=== PATIENT | female | born 1955 | race Caucasian/White ===

== ENCOUNTER 2020-08-24 13:22 | Inpatient (IN) | payer MEDICAID, SELFPAY ==
--- NOTE | ~2020-08-24 | CT_ITS ---
EXAMINATION: CT CHEST, ABDOMEN AND PELVIS WITHOUT CONTRAST. CLINICAL INFORMATION: hypercalcemia/AMS, r/o malignancy . COMPARISON: 02/05/2018. TECHNIQUE: Multidetector volumetric imaging was performed from the thoracic inlet through the pubic symphysis without intravenous contrast. Sagittal and coronal reformatted images were obtained on the technologist workstation. This CT examination was performed using dose optimization techniques as appropriate, variously including the following: *Automated exposure control *Adjustment of mA and/or kV according to patient size (this includes techniques or standardized protocols for targeted exams where dose is matched to indication/reason for exam; i.e. extremities or head) *Use of iterative reconstruction technique DLP: 454 mGy-cm FINDINGS: CHEST: Lungs: Mild centrilobular emphysematous changes are seen within the upper lobes. Mucus or debris impacted bronchi seen more so in the right lower lobe with some patchy distal regions of bronchial opacification as well. There is focal volume loss with collapse of the right middle lobe. I do not appreciate any obstructing lesion in the right middle lobe. Mediastinum: Vascular calculation in the aorta and great vessels no bulky hilar or mediastinal adenopathy. Pericardium/Pleura: No significant effusion. No pleural mass or thickening. Chest Wall/Axilla: Unremarkable. ABDOMEN/PELVIS: Peritoneal Space:No significant free air or free fluid identified. Liver, Gallbladder, Biliary Tree: The non contrast liver is normal in size, shape, and attenuation. No focal hepatic lesion or biliary ductal dilatation is present. The gallbladder is unremarkable with no evidence of radiopaque gallstones, gallbladder wall thickening, or obvious pericholecystic inflammatory changes. Pancreas: Unremarkable. Spleen: Unremarkable. Adrenal Glands: Unremarkable. Kidneys and Ureters: The kidneys are normal in size, shape, and attenuation. No hydronephrosis, hydroureter, or calculi seen. No perinephric stranding. Bladder: Unremarkable. Gastrointestinal Tract: Scattered colonic diverticulosis no colonic wall thickening or pericolonic inflammatory changes. No obstructive changes to the bowel Abdominal Wall: Right inguinal hernia mesh anchors seen Lymphovascular Structures: Vascular calcification within the aorta iliac system. Pelvic Viscera: Unremarkable. Osseus Structures: Multilevel degenerative changes in the spine more so at L5/S1. CT/CT abdomen pelvis wo con IMPRESSION: Mucus or debris impacted bronchi right more so than left with complete collapse of the right middle lobe. Etiology of this is uncertain and difficult to define further on this noncontrast study. Contrast enhanced study or even bronchoscopy may be needed to assess the etiology further. I do not appreciate any bulky adenopathy at this time. Chronic appearing changes in the abdomen but no definitive acute intra-abdominal process.
--- NOTE | ~2020-08-24 | CT_ITS ---
EXAMINATION: CT BRAIN AND CT CERVICAL SPINE WITHOUT CONTRAST CLINICAL INFORMATION: AMS. COMPARISON: None TECHNIQUE: 5 mm thin axial and reformatted 2 mm thin sagittal and coronal images of brain were obtained without contrast. Subsequently axial 3 mm thin and reformatted 2 mm thin sagittal and coronal images of cervical spine were obtained. DLP 1169 FINDINGS: Brain: There is no acute intra-axial, extra-axial bleed, masses or midline shift. There is no acute infarct in evolution. The lateral ventricles are symmetrical in size and configuration without enlargement. The negro to white matter differentiation is maintained normal. Bone windows reveal no calvarial abnormality. There is no scalp soft tissue abnormality. Bilateral paranasal sinuses and mastoid air cells are well aerated. Cervical spine: There is mild straightening of cervical lordosis. The vertebral heights, alignment and disc heights are normal. The craniovertebral junction and the C1-C2 alignment is normal. There is mild superior endplate spurring at the C1-C2 disc level. There is mild ventral spondylosis C3-C4, C4-C5, C5-C6 and C6-C7 disc levels. Moderate left C2-C3, C4-C5 and C5-C6 facet joint arthropathy is noted. No visible acute fracture, dislocation or subluxation seen. Incidental note is made of a right hemimandibulectomy and postsurgical changes. The prevertebral soft tissues are normal. CT/CT cervical spine wo con IMPRESSION: No acute intracranial process seen. Ventral spondylosis C3-C4 through C6-C7 disc levels. No acute fracture or dislocation seen in the cervical spine.
--- NOTE | ~2020-08-24 | CT_ITS ---
EXAMINATION: CT BRAIN AND CT CERVICAL SPINE WITHOUT CONTRAST CLINICAL INFORMATION: AMS. COMPARISON: None TECHNIQUE: 5 mm thin axial and reformatted 2 mm thin sagittal and coronal images of brain were obtained without contrast. Subsequently axial 3 mm thin and reformatted 2 mm thin sagittal and coronal images of cervical spine were obtained. DLP 1169 FINDINGS: Brain: There is no acute intra-axial, extra-axial bleed, masses or midline shift. There is no acute infarct in evolution. The lateral ventricles are symmetrical in size and configuration without enlargement. The negro to white matter differentiation is maintained normal. Bone windows reveal no calvarial abnormality. There is no scalp soft tissue abnormality. Bilateral paranasal sinuses and mastoid air cells are well aerated. Cervical spine: There is mild straightening of cervical lordosis. The vertebral heights, alignment and disc heights are normal. The craniovertebral junction and the C1-C2 alignment is normal. There is mild superior endplate spurring at the C1-C2 disc level. There is mild ventral spondylosis C3-C4, C4-C5, C5-C6 and C6-C7 disc levels. Moderate left C2-C3, C4-C5 and C5-C6 facet joint arthropathy is noted. No visible acute fracture, dislocation or subluxation seen. Incidental note is made of a right hemimandibulectomy and postsurgical changes. The prevertebral soft tissues are normal. CT/CT head/brain wo con IMPRESSION: No acute intracranial process seen. Ventral spondylosis C3-C4 through C6-C7 disc levels. No acute fracture or dislocation seen in the cervical spine.
--- NOTE | ~2020-08-24 | FL_ITS ---
EXAMINATION: XR BARIUM SWALLOW CLINICAL INFORMATION: Dysphagia COMPARISON: None TECHNIQUE: Fluoroscopic guidance was provided for modified barium swallow performed by the speech and hearing department. FINDINGS: There is retention of contrast seen in the vallecula with multiple media. There is penetration with contrast seen in the larynx with multiple media. There was ivette aspiration when the patient drank liquid barium out of a cup. FLUOROSCOPY TIME: 1.8 minutes DOSE AREA PRODUCT: 1.4 negro per centimeter squared. Total dose 4.5 mgy. FL/FL barium swallow modified IMPRESSION: Retention, penetration and aspiration seen.
[2020-08-24 13:36] VITALS: BP 165/50; BP 170/80; PULSE 68; PULSE 84; RESP 18; TEMP 36.6; O2SAT 98; O2SAT 99; BMI 23.6
--- NOTE | 2020-08-24 13:46 | ECG_ITS ---
Test Reason : AMS Blood Pressure : / mmHG Vent. Rate : 066 BPM Atrial Rate : 066 BPM P-R Int : 162 ms QRS Dur : 092 ms QT Int : 430 ms P-R-T Axes : 081 082 048 degrees QTc Int : 450 ms Normal sinus rhythm Normal ECG No previous ECGs available Referred By: Jo-Ann Degroot Electronically Signed By:JOSE ALVARENGA MD
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
[2020-08-24 14:17] LABS: MANUAL DIFF FLAG NO
[2020-08-24 14:19] LABS: Basophils Percent Auto 0.2 % (0-2); Hematocrit 25.5 % (37-47); Hemoglobin 8.6 g/dl (12.0-16.0); Imm Gran Abs Auto 0.04 X10*3/uL (0.00-0.03); Imm Gran Pct Auto 0.5 % (0.0-0.4); Lymphocytes Absolute Auto 0.8 X10*3/uL (1.2-4.9); Lymphocytes Percent Auto 9.1 % (20-40); Mean Corpuscular HGB Conc 33.7 g/dl (31.0-35.0); Mean Corpuscular Hemoglobin 33.9 pg (27.0-33.0); Mean Corpuscular Volume 100.4 fL (80-98); Mean Platelet Volume 9.2 fL (9.4-12.3); Monocytes Absolute Auto 0.6 X10*3/uL (0.1-1.2); Monocytes Percent Auto 6.4 % (2-11); Neutrophils Absolute Auto 7.3 X10*3/uL (2.0-8.3); Neutrophils Percent Auto 83.8 % (45-73); Platelet Count 258 X10*3/uL (160-400); Red Blood Count 2.54 X10*6/uL (4.20-5.50); Red Cell Distribution Width 12.5 % (11.0-16.0); White Blood Count 8.7 X10*3/uL (4.8-10.8)
[2020-08-24 14:26] LABS: INTERNATIONAL NORM RATIO 1.1 (0.9-1.1)
[2020-08-24 14:42] LABS: Lactic Acid 1.3 mmol/L (0.5-2.0)
[2020-08-24 14:43] LABS: Ethanol < 10 mg/dL
[2020-08-24 15:06] LABS: Alanine Aminotransferase 42 U/L (0-31); Albumin Level 4.2 g/dL (3.5-5.0); Alkaline Phosphatase 69 U/L (39-117); Anion Gap 14 (12-20); Aspartate Amino Transferase 171 U/L (5-31); Bilirubin Direct 0.2 mg/dL (0.0-0.5); Bilirubin Total 0.6 mg/dL (0.0-1.0); Blood Urea Nitrogen 47 mg/dL (9-16); Calcium 13.3 mg/dL (8.4-10.2); Carbon Dioxide 33 mmol/L (22-29); Chloride 95 mmol/L (96-108); Creatinine Clr Calc Pharmacy 25.4; Estimated Glomerular Filt Rate 31; Glucose Random 109 mg/dL (60-115); Magnesium 1.3 mg/dL (1.6-2.6); Potassium 2.8 mmol/L (3.3-5.1); Salicylate < 5.0 mg/dL (15-30); Sodium 139 mmol/L (135-145); Total Protein 7.1 g/dL (6.5-8.0)
[2020-08-24 15:07] LABS: Troponin-I High Sensitivity 74.2 ng/L (<3.5-17.0)
[2020-08-24] MEDS: Magnesium Sulfate/H2O 2 GM/50 ML PIGGYBACK IV (15:52)
[2020-08-24] MEDS: 0.9 % Sodium Chloride 1,000 ML 999 ML IV (15:53)
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
--- NOTE | 2020-08-24 16:33 | HE.PHANOTE ---
Pharmacy has completed the medication reconciliation and there were no significant medication issues requiring provider attention.
[2020-08-24 16:50] VITALS: BP 137/51; PULSE 65; RESP 16; O2SAT 100
[2020-08-24] MEDS: Potassium Chloride/H20 10 MEQ/100 ML PIGGYBACK 100 MEQ IV ×4 (17:07→22:59)
[2020-08-24 17:29] LABS: COVID-19 Test Negative (Negative)
--- NOTE | 2020-08-24 18:04 | PC.NURSE ---
daughter lindsay [phone]
--- NOTE | 2020-08-24 18:05 | PC.NURSE ---
PT AMBULATED STEADILY TO BATHROOM WITH WALKER. URINE SPECIMEN OBTAINED.
[2020-08-24 18:17] LABS: Glucose Urine UA NEG (NEG); Leukocyte Esterase Urine NEG (NEG); Nitrite Urine NEG (NEG); Specific Gravity - Urine 1.015 (1.005-1.025); Urine Blood 1+ (NEG); Urine Ketones NEG (NEG); Urine Protein TRACE MG/DL (NEG-TRACE)
[2020-08-24 18:24] LABS: Appearance Urine CLEAR; Color Urine YELLOW
[2020-08-24 18:31] LABS: Amphetamine Screen Urine Not Detected (Not Detect); Barbiturates, Urine Not Detected (Not Detect); Benzodiazepines Screen Urine Not Detected (Not Detect); Cannabinoid Screen Urine Not Detected (Not Detect); Cocaine Screen Urine Not Detected (Not Detect); Opiate Screen Urine Not Detected (Not Detect); Phencyclidine Screen Urine Not Detected (Not Detect)
[2020-08-24 18:39] LABS: WBC Urine 0-2 /HPF (0-4)
[2020-08-24 18:40] LABS: Bacteria Urine TRACE /LPF; Hyaline Casts Urine 0-2 /LPF; RBC Urine 0-2 /HPF (0); Squamous Epithelial Cell Urine 1+ /LPF
[2020-08-24 18:59] LABS: OBS Int Ctl Valid YES; OBS1 POSITIVE (NEGATIVE)
[2020-08-24] MEDS: Piperacillin Sodium/Tazobactam 3.375 GM in 0.9 % Sodium Chloride 50 ML IV (19:05)
[2020-08-24 19:13] VITALS: BP 141/57; PULSE 64; RESP 16; O2SAT 96
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
--- NOTE | 2020-08-24 20:04 | PC.NURSE ---
report given to RN on IMC
[2020-08-24] MEDS: vancomycin HCL 750 MG in 0.9 % Sodium Chloride 250 ML 265 MG IV (20:15)
[2020-08-24 20:33] LABS: B Type Natriuretic Peptide 692 pg/mL (<100)
[2020-08-24 20:48] LABS: Anion Gap 16 (12-20); Blood Urea Nitrogen 41 mg/dL (9-16); Carbon Dioxide 27 mmol/L (22-29); Chloride 101 mmol/L (96-108); Creatinine Clr Calc Pharmacy 32.8; Estimated Glomerular Filt Rate 42; Glucose Random 83 mg/dL (60-115); Potassium 3.5 mmol/L (3.3-5.1); Sodium 140 mmol/L (135-145)
[2020-08-24 20:51] LABS: Vitamin D 25-OH Total 27.9 ng/mL (>30)
[2020-08-24 21:05] LABS: Troponin-I High Sensitivity 66.9 ng/L (<3.5-17.0)
[2020-08-24 21:14] VITALS: BP 181/75; PULSE 62; RESP 20; TEMP 36.8; O2SAT 96
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
[2020-08-24] MEDS: Dextrose 5 % and 0.9 % NaCl 1,000 ML 100 ML IVCONT (22:48)
[2020-08-24 23:37] VITALS: BP 150/61; PULSE 60; RESP 18; TEMP 36.7; O2SAT 99
[2020-08-25] VITALS (9 sets, daily range): BP systolic 117–160; BP diastolic 51–79; PULSE 55–82; RESP 18–20; TEMP 36.3–37; O2SAT 88–100; BMI 23.6
[2020-08-25] MEDS: Piperacillin Sodium/Tazobactam 2.25 GM in 0.9 % Sodium Chloride 50 ML IV ×2 (02:00→07:46)
[2020-08-25] MEDS: Levothyroxine Sodium 100 MCG/5 ML VIAL 37.5 MCG IVPUSH (06:09)
[2020-08-25] MEDS: Pantoprazole Sodium 40 MG/10 ML VIAL IVPUSH ×2 (06:09→16:32)
[2020-08-25 06:21] LABS: MANUAL DIFF FLAG NO
[2020-08-25 06:45] LABS: Basophils Percent Auto 0.3 % (0-2); Eosinophils Absolute Auto 0.1 X10*3/uL (0.0-0.4); Eosinophils Percent Auto 1.1 % (0-4); Hematocrit 23.5 % (37-47); Hemoglobin 7.9 g/dl (12.0-16.0); INTERNATIONAL NORM RATIO 1.1 (0.9-1.1); Imm Gran Abs Auto 0.02 X10*3/uL (0.00-0.03); Imm Gran Pct Auto 0.3 % (0.0-0.4); Lymphocytes Absolute Auto 0.9 X10*3/uL (1.2-4.9); Lymphocytes Percent Auto 14.9 % (20-40); Mean Corpuscular HGB Conc 33.6 g/dl (31.0-35.0); Mean Corpuscular Hemoglobin 33.8 pg (27.0-33.0); Mean Corpuscular Volume 100.4 fL (80-98); Mean Platelet Volume 9.7 fL (9.4-12.3); Monocytes Absolute Auto 0.7 X10*3/uL (0.1-1.2); Monocytes Percent Auto 10.4 % (2-11); Neutrophils Absolute Auto 4.6 X10*3/uL (2.0-8.3); Platelet Count 226 X10*3/uL (160-400); Prothrombin Time 13.4 SEC (10.8-13.0); Red Blood Count 2.34 X10*6/uL (4.20-5.50); Red Cell Distribution Width 12.7 % (11.0-16.0); White Blood Count 6.3 X10*3/uL (4.8-10.8)
[2020-08-25 06:55] LABS: Magnesium 1.8 mg/dL (1.6-2.6)
[2020-08-25 07:08] LABS: Anion Gap 10 (12-20); Blood Urea Nitrogen 33 mg/dL (9-16); Carbon Dioxide 27 mmol/L (22-29); Chloride 107 mmol/L (96-108); Creatinine Clr Calc Pharmacy 33.4; Estimated Glomerular Filt Rate 43; Glucose Random 103 mg/dL (60-115); Potassium 3.1 mmol/L (3.3-5.1); Sodium 141 mmol/L (135-145)
[2020-08-25 07:23] LABS: Calcium 10.4 mg/dL (8.4-10.2)
--- NOTE | 2020-08-25 07:30 | CA_ITS ---
Transthoracic Echocardiogram Patient (Last, First, Middle): Beckie Santiago, Gender: Female Date of : 1955 Age: 65 Procedure Date: 08/25/2020 Procedure Type: Transthoracic Echocardiogram Location: [facility] [place] Height: 154.94 cm Weight: 56.7 kg BSA: 1.55 m2 Heart Rate: bpm BP: 117 / 51 mmHg Agricultural Inspector: Referring MD: Yasir Last MD Symptoms: high troponin Conclusions: - 1. Normal LV systolic and diastolic function 2. Normal cardiac valvular Doppler 3. Mildly elevated right ventricular systolic pressure 4. No pericardial effusion Findings Left Ventricle Normal left ventricular size, thickness, and systolic function. Spectral Doppler is indicative of a normal filling pattern. Right Ventricle Normal right ventricular cavity size. There is borderline right ventricular systolic function. Atria Both atria are normal in size. There is no evidence of interatrial shunt. Aortic Valve Normal aortic valve structure and function. There is no aortic valve stenosis. There is no aortic valve regurgitation. Mitral Valve Normal mitral valve structure and function. There is trace mitral valve regurgitation. There is no mitral valve stenosis. Pulmonic Valve The pulmonic valve is likely normal. Tricuspid Valve Normal tricuspid valve structure. There is mild tricuspid valve regurgitation. Mild pulmonary hypertension is present. Great Vessels All visible segments of the aorta are normal in size. The pulmonary artery was not well visualized. Venous The inferior vena cava is normal in size and collapses greater than 50% with inspiration. Pericardium/Pleural There is no evidence of pericardial effusion. Prior Study Comparison No prior study available for comparison. Measurements 2D Linear Measurements RVIDd: 2.67 RVIDd Index: 1.72 IVSd: 0.65 0.6-0.9/0.6-1.0 cm LVIDd: 4.08 3.9-5.3/4.2-5.9 cm LVIDd Index: 2.63 2.4-3.2/2.2-3.1 cm/m2 LVIDs: 2.88 2.0-3.6 cm LVPWd: 1.19 0.7-1.1 cm Ao Root: 2.70 2.1-3.5 cm LA Diam: 3.10 2.7-3.8/3.0-4.0 cm LAIDs Index: 2.00 1.5-2.3 cm/m2 LV Mass: 145.36 67-162/88-224 g LV Mass Index: 93.78 43-95/49-115 g/m2 LVOT Diam: 2.20 3.0+(-)1.3 cm 2D Systolic Function EF 4C: 64.30 >55% EF 2C: 67.80 >55% EF BiP: 65.00 >55% Mitral Valve MV Pk E: 1.04 MV PK A: 0.74 MV Decel Time: 159.00 E/A: 1.40 E'Lateral: 7.18 E'Medial: 8.38 E/E' Med: 12.40 E/E' Lat: 14.50 Aortic Valve AoV Pk Darion: 1.38 AoV Mn Darion: 1.12 AoV VTI: 0.38 AoV Pk Grad: 8.00 Aov Mn Grad: 5.00 BERNADINE Cont.VTI: 2.65 LVOT LVOT Pk Darion: 1.01 LVOT Mn Darion: 0.74 LVOT VTI: 0.27 LVOT Pk Grad: 4.00 LVOT Mn Grad: 2.00 LVOT Diam: 2.20 LVOT Area: 3.80 Diastolic Function MV Pk E: 1.04 MV Pk A: 0.74 E/A: 1.40 E'Medial: 8.38 E/E' Med: 12.40 E' Laterial: 7.18 E/E' Lat: 14.50 Tricuspid Valve TR Pk Darion: 3.11 TR Pk Grad: 32.00 RA Press: 8.00 RVSP: 40.00 Great Vessels Aorta Ao Root-2D: 2.70 2.0-3.7 cm Updated in Other Vendor System with Status of Final Tho Monteiro MD electronically signed on 08/25/2020 9:15:13 AM with status of Final
[2020-08-25] MEDS: 0.9 % Sodium Chloride Flush 3 ML SYRINGE IVFLUSH ×2 (07:46→15:26)
[2020-08-25] MEDS: Dextrose 5 % and 0.9 % NaCl 1,000 ML 100 ML IVCONT ×3 (07:46→23:30)
[2020-08-25] MEDS: Magnesium Sulfate/H2O 2 GM/50 ML PIGGYBACK IV (08:57)
[2020-08-25] MEDS: Potassium Chloride/H20 10 MEQ/100 ML PIGGYBACK 100 MEQ IV ×4 (08:58→12:41)
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
[2020-08-25] MEDS: Acetylcysteine 10 % 400 MG/4 ML VIAL INHALE ×3 (11:08→20:45)
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
--- NOTE | 2020-08-25 11:29 | P.CONCA_ITS ---
History of Present Illness History of Present Illness Date of Service: 08/25/20 Requesting physician: Yasir Last Consult reason: troponin elevation Chief complaint: Confusion Narrative: I was asked to see tear is sign cardiology consultation today for elevated troponin. Also noted incidentally to have elevated BNP. Patient came into the hospital with confusion. However currently she says she is fully oriented. Her main complain is currently lower back discomfort. On admission she was noted to have minimally elevated troponin which and subsequently workup showed down trending troponin. This is more stable and there is no suggestion of any cardiac symptoms of ischemia including no chest pain or shortness of breath. There were no EKG changes suggestive ischemia. This troponin elevation is not related to acute coronary syndrome. Patient also noted to have elevated BNP. She has had no recent heart failure symptoms. No other clinical signs of heart failure. Patient noted to have right middle lobe infiltrate question atelectasis related to mucus plugging. However blood cultures are positive for bacteremia suggestive of possible pneumonia with sepsis. She has no prior cardiac history. She has prior history of malignancy of the jaw. Review of Systems Constitutional: Constitutional: Denies chills, Reports fatigue, Denies fever(s) and Reports lethargy Cardiovascular: Cardiovascular: Reports no additional cardiovascular complaints Respiratory: Respiratory: Reports no additional respiratory complaints Gastrointestinal: Gastrointestinal: Reports no additional gastrointestinal complaints Genitourinary: Genitourinary: Reports no additional female genitourinary complaints Musculoskeletal: Musculoskeletal: Reports no additional musculoskeletal complaints Neurologic: Reports system reviewed and no additional complaints, except as documented Psychiatric: Psychiatric: Reports no additional psychiatric complaints Endocrine: Endocrine: Reports no additional endocrine complaints and Reports fatigue PMFSH Past Medical History Medical History Cancer of jaw Hypothyroidism Social History Social History Household Members: Children and Other Household Members Other:: states she lives with her mother, but ed reporting states living with daugh Housing: House Do you presently have visiting nurse or other home services: No (used to have services but states they stopped 3 years ago) Alcohol intake: current Alcohol intake frequency: 3 or more drinks per day Alcohol type: beer Patient Tobacco Use Status: Current someday Tobacco user Tobacco use type: Cigarette Cigarette Packs Per Day: 1 Cigarettes Per Day: 20.0 Years Smoked: 35 service: No Current occupational status: disabled Meds Allergies Allergy/AdvReac Type Severity Reaction Status Date / Time No Known Allergies Allergy Verified 08/24/20 13:45 Active Medications: Current Medications Generic Name Dose Route Start Last Admin Trade Name Freq PRN Reason Stop Dose Admin Acetaminophen 650 mg 08/24/20 19:17 Acetaminophen 325 Mg Tablet PO Q6H PRN Pain, Mild (Pain Scale 1-3) Acetylcysteine 400 mg 08/25/20 12:00 08/25/20 11:08 Acetylcysteine 10 % 400 Mg/4 Ml Vial INHALE 400 mg RQ4H WHILE AWAKE ARIAN Administration Enoxaparin Sodium 40 mg 08/24/20 20:00 08/24/20 22:10 Enoxaparin Sodium 40 Mg/0.4 Ml Syringe SUBCUT Not Given Q24H ARIAN Dextrose/Sodium Chloride 1,000 mls @ 100 mls/hr 08/24/20 19:30 08/25/20 07:46 D5ns IVCONT 100 mls/hr .Q10H ARIAN Administration Piperacillin Sod/Tazobactam 50 mls @ 100 mls/hr 08/25/20 02:00 08/25/20 08:18 Sod 2.25 gm/ Sodium Chloride IV Infused Q6H ARIAN Infusion Vancomycin HCl 750 mg/ Sodium 265 mls @ 265 mls/hr 08/25/20 20:00 08/24/20 21:59 Chloride IV Infused Q24H ARIAN Infusion Potassium Chloride 10 meq in 100 mls @ 100 mls/hr 08/25/20 08:45 08/25/20 09:58 IV 08/25/20 12:44 100 mls/hr Q1H ARIAN Administration Levothyroxine Sodium 37.5 mcg 08/25/20 06:00 08/25/20 06:10 Levothyroxine Sodium 100 Mcg Vial IVPUSH Not Given DAILY@0600 ARIAN Levothyroxine Sodium 37.5 mcg 08/25/20 06:00 08/25/20 06:09 Levothyroxine Sodium 100 Mcg/5 Ml Vial IVPUSH 37.5 mcg DAILY@0600 ARIAN Administration Magnesium Hydroxide 30 ml 08/24/20 19:17 Milk Of Magnesia 30 Ml Oral.Susp PO DAILY PRN Constipation Pantoprazole Sodium 40 mg 08/25/20 06:30 06/09/21 06:09 Pantoprazole Sodium 40 Mg/10 Ml Vial IVPUSH 40 mg BID@[id number] [facility] Administration Pharmacy Consult 1 each 08/24/20 16:16 Consult Rx Perform Med Rec MISCELLANE ONCE PRN Consult order Pharmacy Consult 1 each 08/24/20 19:34 Consult Rx Vancomycin Dosing MISCELLANE DAILY PRN Consult order Sodium Chloride 3 ml 08/25/20 00:00 08/25/20 07:46 0.9 % Sodium Chloride Flush 3 Ml Syringe IVFLUSH 3 ml QSHIFT [facility] Administration Home Medications Medication Instructions Recorded Confirmed Last Taken Type levothyroxine 1 tab PO DAILY 08/24/20 08/24/20 08/24/20 History Physical Exam Vital Signs: Vital Signs: Last Vital Signs Temp 98.5 F 08/25/20 11:24 Pulse 65 08/25/20 11:24 Resp 18 08/25/20 11:24 BP 142/65 H 08/25/20 11:24 Pulse Ox 99 08/25/20 11:24 Body Mass Index 23.6 Const: General: cooperative, comfortable, no acute distress, alert and awake Nutritional Appearance: average body habitus Orientation/consciousness: patient oriented x3 Limitations: no limitations HENMT: Head: Yes normocephalic and Yes atraumatic Neck: Neck: Yes trachea midline, Yes supple and Yes no JVD Resp: Effort & Inspection: normal respiratory effort Auscultation: breath sounds absent on the right (Mid posterior) and diminished lung sounds Cardio: Jugular venous distension: no JVD Palpation: normal PMI Rate: regular rate Rhythm: regular rhythm Heart sounds: S1 normal heart sound present and S2 normal heart sound present GI: Auscultation: normal bowel sounds Skin: General skin exam: no rashes or lesions noted Neuro: General: patient oriented x3 Extrem: General: Yes no clubbing, cyanosis or edema Psych: Appearance: grossly normal Results Labs and Meds Result diagrams: 08/25/20 05:36 08/25/20 05:36 Lab results: Laboratory Results - last 24 hr 08/24/20 08/24/20 08/24/20 14:09 14:09 14:09 WBC 8.7 RBC 2.54 L Hgb 8.6 L Hct 25.5 L MCV 100.4 H MCH 33.9 H MCHC 33.7 RDW 12.5 Plt Count 258 MPV 9.2 L Immature Gran % (Auto) 0.5 H Neut % (Auto) 83.8 H Lymph % (Auto) 9.1 L Perkins % (Auto) 6.4 Eos % (Auto) 0.0 Baso % (Auto) 0.2 Lymph # (Auto) 0.8 L Perkins # (Auto) 0.6 Eos # (Auto) 0.0 Baso # (Auto) 0.0 Abs Immat Gran (auto) 0.04 H Absolute Neuts (auto) 7.3 Absolute Nucleated RBC 0.000 Nucleated RBC % (auto) 0.0 PT 13.0 INR 1.1 Sodium 139 Potassium 2.8 L Chloride 95 L Carbon Dioxide 33 H Anion Gap 14 BUN 47 H Creatinine 1.64 H Estim Creat Clear Calc 25.4 Estimated GFR 31 Random Glucose 109 Lactic Acid Calcium 13.3 H* Magnesium Total Bilirubin 0.6 Direct Bilirubin 0.2 AST 171 H ALT 42 H Alkaline Phosphatase 69 Troponin I High Sens B-Natriuretic Peptide Total Protein 7.1 Albumin 4.2 25-OH Vitamin D Total Urine Color Urine Appearance Urine pH Ur Specific [place] Urine Protein Urine Glucose (UA) Urine Ketones Urine Blood Urine Nitrite Ur Leukocyte Esterase Urine RBC Urine WBC Ur Squamous Epith Cells Urine Bacteria Hyaline Casts Stool Occult Blood Salicylates Urine Opiates Screen Ur Barbiturates Screen Ur Phencyclidine Scrn Ur Amphetamines Screen U Benzodiazepines Scrn Urine Cocaine Screen U Marijuana (THC) Screen Ethyl Alcohol COVID-19 ([facility]) COVID-19 Clin Com 08/24/20 08/24/20 08/24/20 14:09 14:09 14:09 WBC RBC Hgb Hct MCV MCH MCHC RDW Plt Count MPV Immature Gran % (Auto) Neut % (Auto) Lymph % (Auto) Perkins % (Auto) Eos % (Auto) Baso % (Auto) Lymph # (Auto) Perkins # (Auto) Eos # (Auto) Baso # (Auto) Abs Immat Gran (auto) Absolute Neuts (auto) Absolute Nucleated RBC Nucleated RBC % (auto) PT INR Sodium Potassium Chloride Carbon Dioxide Anion Gap BUN Creatinine Estim Creat Clear Calc Estimated GFR Random Glucose Lactic Acid 1.3 Calcium Magnesium Total Bilirubin Direct Bilirubin AST ALT Alkaline Phosphatase Troponin I High Sens 74.2 H* B-Natriuretic Peptide Total Protein Albumin 25-OH Vitamin D Total Urine Color Urine Appearance Urine pH Ur Specific [place] Urine Protein Urine Glucose (UA) Urine Ketones Urine Blood Urine Nitrite Ur Leukocyte Esterase Urine RBC Urine WBC Ur Squamous Epith Cells Urine Bacteria Hyaline Casts Stool Occult Blood Salicylates Urine Opiates Screen Ur Barbiturates Screen Ur Phencyclidine Scrn Ur Amphetamines Screen U Benzodiazepines Scrn Urine Cocaine Screen U Marijuana (THC) Screen Ethyl Alcohol < 10 COVID-19 ([facility]) COVID-19 Clin [email or web address] 08/24/20 08/24/20 08/24/20 14:09 16:49 17:52 WBC RBC Hgb Hct MCV MCH MCHC RDW Plt Count MPV Immature Gran % (Auto) Neut % (Auto) Lymph % (Auto) [place] % (Auto) Eos % (Auto) Baso % (Auto) Lymph # (Auto) Perkins # (Auto) Eos # (Auto) Baso # (Auto) Abs Immat Gran (auto) Absolute Neuts (auto) Absolute Nucleated RBC Nucleated RBC % (auto) PT INR Sodium Potassium Chloride Carbon Dioxide Anion Gap BUN Creatinine Estim Creat Clear Calc Estimated GFR Random Glucose Lactic Acid Calcium Magnesium 1.3 L* Total Bilirubin Direct Bilirubin AST ALT Alkaline Phosphatase Troponin I High Sens B-Natriuretic Peptide Total Protein Albumin 25-OH Vitamin D Total Urine Color YELLOW Urine Appearance CLEAR Urine pH 6.0 Ur Specific [place] 1.015 Urine Protein TRACE Urine Glucose (UA) NEG Urine Ketones NEG Urine Blood 1+ H Urine Nitrite NEG Ur Leukocyte Esterase NEG Urine RBC 0-2 Urine WBC 0-2 Ur Squamous Epith Cells 1+ Urine Bacteria TRACE Hyaline Casts 0-2 Stool Occult Blood Salicylates < 5.0 L Urine Opiates Screen Ur Barbiturates Screen Ur Phencyclidine Scrn Ur Amphetamines Screen U Benzodiazepines Scrn Urine Cocaine Screen U Marijuana (THC) Screen Ethyl Alcohol COVID-19 ([facility]) Negative COVID-19 Clin Com See Note 08/24/20 08/24/20 08/24/20 17:52 18:12 19:55 WBC RBC Hgb Hct MCV MCH MCHC RDW Plt Count MPV Immature Gran % (Auto) Neut % (Auto) Lymph % (Auto) [place] % (Auto) Eos % (Auto) Baso % (Auto) Lymph # (Auto) [place] # (Auto) Eos # (Auto) Baso # (Auto) Abs Immat Gran (auto) Absolute Neuts (auto) Absolute Nucleated RBC Nucleated RBC % (auto) PT INR Sodium Potassium Chloride Carbon Dioxide Anion Gap BUN Creatinine Estim Creat Clear Calc Estimated GFR Random Glucose Lactic Acid Calcium Magnesium Total Bilirubin Direct Bilirubin AST ALT Alkaline Phosphatase Troponin I High Sens 66.9 H* B-Natriuretic Peptide Total Protein Albumin 25-OH Vitamin D Total Urine Color Urine Appearance Urine pH Ur Specific [place] Urine Protein Urine Glucose (UA) Urine Ketones Urine Blood Urine Nitrite Ur Leukocyte Esterase Urine RBC Urine WBC Ur Squamous Epith Cells Urine Bacteria Hyaline Casts Stool Occult Blood POSITIVE Salicylates Urine Opiates Screen Not Detected Ur Barbiturates Screen Not Detected Ur Phencyclidine Scrn Not Detected Ur Amphetamines Screen Not Detected U Benzodiazepines Scrn Not Detected Urine Cocaine Screen Not Detected U Marijuana (THC) Screen Not Detected Ethyl Alcohol COVID-19 ([place]) COVID-19 [employer] 08/24/20 08/24/20 08/24/20 19:55 19:55 19:55 WBC RBC Hgb Hct MCV MCH MCHC RDW Plt Count MPV Immature Gran % (Auto) Neut % (Auto) Lymph % (Auto) [place] % (Auto) Eos % (Auto) Baso % (Auto) Lymph # (Auto) [place] # (Auto) Eos # (Auto) Baso # (Auto) Abs Immat Gran (auto) Absolute Neuts (auto) Absolute Nucleated RBC Nucleated RBC % (auto) PT INR Sodium 140 Potassium 3.5 D Chloride 101 Carbon Dioxide 27 Anion Gap 16 BUN 41 H Creatinine 1.27 Estim Creat Clear Calc 32.8 Estimated GFR 42 Random Glucose 83 Lactic Acid Calcium 11.0 H D Magnesium Total Bilirubin Direct Bilirubin AST ALT Alkaline Phosphatase Troponin I High Sens B-Natriuretic Peptide 692 H Total Protein Albumin 25-OH Vitamin D Total 27.9 Urine Color Urine Appearance Urine pH Ur Specific [place] Urine Protein Urine Glucose (UA) Urine Ketones Urine Blood Urine Nitrite Ur Leukocyte Esterase Urine RBC Urine WBC Ur Squamous Epith Cells Urine Bacteria Hyaline Casts Stool Occult Blood Salicylates Urine Opiates Screen Ur Barbiturates Screen Ur Phencyclidine Scrn Ur Amphetamines Screen U Benzodiazepines Scrn Urine Cocaine Screen U Marijuana (THC) Screen Ethyl Alcohol COVID-19 ([facility]) COVID-19 [facility] Com 08/25/20 08/25/20 08/25/20 05:36 05:36 05:36 WBC 6.3 RBC 2.34 L Hgb 7.9 L Hct 23.5 L MCV 100.4 H MCH 33.8 H MCHC 33.6 RDW 12.7 Plt Count 226 MPV 9.7 Immature Gran % (Auto) 0.3 Neut % (Auto) 73.0 Lymph % (Auto) 14.9 L [place] % (Auto) 10.4 Eos % (Auto) 1.1 Baso % (Auto) 0.3 Lymph # (Auto) 0.9 L [place] # (Auto) 0.7 Eos # (Auto) 0.1 Baso # (Auto) 0.0 Abs Immat Gran (auto) 0.02 Absolute Neuts (auto) 4.6 Absolute Nucleated RBC 0.000 Nucleated RBC % (auto) 0.0 PT 13.4 H INR 1.1 Sodium 141 Potassium 3.1 L Chloride 107 Carbon Dioxide 27 Anion Gap 10 L BUN 33 H Creatinine 1.25 Estim Creat Clear Calc 33.4 Estimated GFR 43 Random Glucose 103 Lactic Acid Calcium 10.4 H Magnesium Total Bilirubin Direct Bilirubin AST ALT Alkaline Phosphatase Troponin I High Sens B-Natriuretic Peptide Total Protein Albumin 25-OH Vitamin D Total Urine Color Urine Appearance Urine pH Ur Specific [place] Urine Protein Urine Glucose (UA) Urine Ketones Urine Blood Urine Nitrite Ur Leukocyte Esterase Urine RBC Urine WBC Ur Squamous Epith Cells Urine Bacteria Hyaline Casts Stool Occult Blood Salicylates Urine Opiates Screen Ur Barbiturates Screen Ur Phencyclidine Scrn Ur Amphetamines Screen U Benzodiazepines Scrn Urine Cocaine Screen U Marijuana (THC) Screen Ethyl Alcohol COVID-19 ([facility]) COVID-19 Clin Com 08/25/20 05:36 WBC RBC Hgb Hct MCV MCH MCHC RDW Plt Count MPV Immature Gran % (Auto) Neut % (Auto) Lymph % (Auto) [place] % (Auto) Eos % (Auto) Baso % (Auto) Lymph # (Auto) [place] # (Auto) Eos # (Auto) Baso # (Auto) Abs Immat Gran (auto) Absolute Neuts (auto) Absolute Nucleated RBC Nucleated RBC % (auto) PT INR Sodium Potassium Chloride Carbon Dioxide Anion Gap BUN Creatinine Estim Creat Clear Calc Estimated GFR Random Glucose Lactic Acid Calcium Magnesium 1.8 Total Bilirubin Direct Bilirubin AST ALT Alkaline Phosphatase Troponin I High Sens B-Natriuretic Peptide Total Protein Albumin 25-OH Vitamin D Total Urine Color Urine Appearance Urine pH Ur Specific [place] Urine Protein Urine Glucose (UA) Urine Ketones Urine Blood Urine Nitrite Ur Leukocyte Esterase Urine RBC Urine WBC Ur Squamous Epith Cells Urine Bacteria Hyaline Casts Stool Occult Blood Salicylates Urine Opiates Screen Ur Barbiturates Screen Ur Phencyclidine Scrn Ur Amphetamines Screen U Benzodiazepines Scrn Urine Cocaine Screen U Marijuana (THC) Screen Ethyl Alcohol COVID-19 ([facility]) COVID-19 Clin Com EKG shows normal sinus rhythm with normal EKG Conclusions: - 1. Normal LV systolic and diastolic function 2. Normal cardiac valvular Doppler 3. Mildly elevated right ventricular systolic pressure 4. No pericardial effusion Imaging Radiologist's impression: Impressions Cervical Spine CT 08/24/20 13:51 IMPRESSION: No acute intracranial process seen. Ventral spondylosis C3-C4 through C6-C7 disc levels. No acute fracture or dislocation seen in the cervical spine. Head CT 08/24/20 13:51 IMPRESSION: No acute intracranial process seen. Ventral spondylosis C3-C4 through C6-C7 disc levels. No acute fracture or dislocation seen in the cervical spine. Abdomen/Pelvis CT 08/24/20 15:26 IMPRESSION: Mucus or debris impacted bronchi right more so than left with complete collapse of the right middle lobe. Etiology of this is uncertain and difficult to define further on this noncontrast study. Contrast enhanced study or even bronchoscopy may be needed to assess the etiology further. I do not appreciate any bulky adenopathy at this time. Chronic appearing changes in the abdomen but no definitive acute intra-abdominal process. Chest CT 08/24/20 15:26 IMPRESSION: Mucus or debris impacted bronchi right more so than left with complete collapse of the right middle lobe. Etiology of this is uncertain and difficult to define further on this noncontrast study. Contrast enhanced study or even bronchoscopy may be needed to assess the etiology further. I do not appreciate any bulky adenopathy at this time. Chronic appearing changes in the abdomen but no definitive acute intra-abdominal process. Assessment and Plan (1) Troponin level elevated: Status: Acute Patient with minimal troponin elevation which is flat. There are no obvious ischemic symptoms or ischemic EKG changes. Unlikely that this represents acute coronary syndrome. Most likely related to underlying medical condition including possible sepsis and acute kidney injury. Does not need anticoagulation. Does not require any further workup. Echocardiogram within normal limits. (2) Elevated brain natriuretic peptide (BNP) level: Status: Acute Elevated BNP in patient without any symptoms or signs of congestive heart failure. LV systolic and diastolic function within normal limits. There is mildly elevated right ventricular systolic pressure. The elevated BNP appears to be noncardiac in nature, could be related to pulmonary issues including pneumonia and elevated RV systolic pressure in the setting of acute kidney injury. Has no need for diuresis at this point in time. No further workup is indicated. Possibility this could be a lab error. Should repeat BNP. Will sign of the case. Thank you for allowing me to partake in her care Procedures Date of Service Date of Service: 08/25/20
--- NOTE | 2020-08-25 12:20 | MHC.SL.SWA ---
Speech Pathologist Impression: Risk of Aspiration Oralpharyngeal Dysphagia Risk of Aspiration Due to: Dysphasia Diet Status: Liquid Consistency and Strategies for Safe Swallow: Liquid Intake Recommendation: NPO Liquid Intake Strategies: Solid Food Consistency: Dietary Recommendations: NPO Additional Modifications to Solid Foods: Oral Medication Intake: NPO Compensatory Strategies and Precautions to be Taken for Safe Swallow: Supervision While Eating and Drinking for Safe Swallow: PO with [employer] Foods to Avoid: Swallowing Recommended Treatments: Recommendation for Speech: Inpatient Speech Therapy Modified Barium Swallow Study - Inpatient Comment: Recommend inpatient MBSS to rule in/out aspiration with liquids and solids. MBSS is scheduled for this afternoon. Frequency/Duration: Date Range for Service Req: Timeline to reassess: Internet Network Specialist Clinican/Clinical Fellow: Yes: Daysi Manriquez M.A., CF-[employer] Supervisory Statement: I have reviewed and agree with the student/clinical fellow's documentation: Speech Language Pathologist:
--- NOTE | 2020-08-25 12:55 | PM.GICN ---
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 She was given empiric ABX due to mucous plugging of right middle lobe. CT abdomen had no significant findings. Primary team consulted me for consideration of putting in a new G tube as she failed bedside swallow assessment. She feels better today and able to give a clearer history with resolution of confusion. Per her report she was managing a pureed diet before admission including fluids and cereal, soups with ease and w/o any choking or coughing. She vehemently opposes another G tube. Of note she is noted to be anemia, with macrocytosis, apparently had black stools on exam but she denies rectal bleeding or melena, but does admit to several months of variable intenstiy epigastric pain, which is sharp without radiation, can be worse with or w/o food, but no nausea or vomiting, denies heartburn or early satiety. She does take motrin for back pain on regular basis. Review of Systems Constitutional: Constitutional: Reports no additional constitutional complaints, Denies body ache(s), Denies chills, Reports fatigue, Denies fever(s), Denies headache(s), Reports lethargy and Denies weakness Eyes: Eyes: Reports no additional eye complaints and Denies change in vision ENT: Reports system reviewed and no additional complaints, except as documented, Denies dizziness, Denies headache(s), Denies nasal congestion, Denies nasal discharge and Denies neck pain Cardiovascular: Cardiovascular: Reports no additional cardiovascular complaints, Denies chest pain, Denies leg edema and Denies dyspnea Respiratory: Respiratory: Reports no additional respiratory complaints, Reports cough (Chronic) and Denies dyspnea Gastrointestinal: Gastrointestinal: Reports no additional gastrointestinal complaints, Reports abdominal pain (Epigastric), Reports diarrhea, Reports nausea and Denies vomiting Musculoskeletal: Musculoskeletal: Reports no additional musculoskeletal complaints, Reports back pain, Denies arthralgias, Denies joint swelling, Denies neck pain, Denies numbness and Denies tingling Integumentary/Breasts: Skin/Breast: Reports system reviewed and no additional complaints, except as docu and Denies rash Neurologic: Reports system reviewed and no additional complaints, except as documented, Denies Abnormal speech present, Denies dizziness, Denies headache(s), Denies numbness, Denies tingling and Denies weakness Psychiatric: Psychiatric: Reports no additional psychiatric complaints Endocrine: Endocrine: Reports no additional endocrine complaints and Reports fatigue PMFSH Past Medical History Medical History Cancer of jaw Hypothyroidism Social History Social History Household Members: Children and Other Household Members Other:: states she lives with her mother, but ed reporting states living with daugh Housing: House Do you presently have visiting nurse or other home services: No (used to have services but states they stopped 3 years ago) Alcohol intake: current Alcohol intake frequency: 3 or more drinks per day Alcohol type: beer Patient Tobacco Use Status: Current someday Tobacco user Tobacco use type: Cigarette Cigarette Packs Per Day: 1 Cigarettes Per Day: 20.0 Years Smoked: 35 service: No Current occupational status: disabled Meds Allergies Allergy/AdvReac Type Severity Reaction Status Date / Time No Known Allergies Allergy Verified 08/24/20 13:45 Active Medications: Current Medications Generic Name Dose Route Start Last Admin Trade Name Freq PRN Reason Stop Dose Admin Acetaminophen 650 mg 08/24/20 19:17 Acetaminophen 325 Mg Tablet PO Q6H PRN Pain, Mild (Pain Scale 1-3) Acetylcysteine 400 mg 08/25/20 12:00 08/25/20 11:08 Acetylcysteine 10 % 400 Mg/4 Ml Vial INHALE 400 mg RQ4H WHILE AWAKE ARIAN Administration Enoxaparin Sodium 40 mg 08/24/20 20:00 08/24/20 22:10 Enoxaparin Sodium 40 Mg/0.4 Ml Syringe SUBCUT Not Given Q24H ARIAN Dextrose/Sodium Chloride 1,000 mls @ 100 mls/hr 08/24/20 19:30 08/25/20 07:46 D5ns IVCONT 100 mls/hr .Q10H ARIAN Administration Piperacillin Sod/Tazobactam 50 mls @ 100 mls/hr 08/25/20 02:00 08/25/20 08:18 Sod 2.25 gm/ Sodium Chloride IV Infused Q6H [facility] Infusion Vancomycin HCl 750 mg/ Sodium 265 mls @ 265 mls/hr 08/25/20 20:00 08/24/20 21:59 Chloride IV Infused Q24H [facility] Infusion Levothyroxine Sodium 37.5 mcg 08/25/20 06:00 08/25/20 06:10 Levothyroxine Sodium 100 Mcg Vial IVPUSH Not Given DAILY@0600 [facility] Levothyroxine Sodium 37.5 mcg 08/25/20 06:00 08/25/20 06:09 Levothyroxine Sodium 100 Mcg/5 Ml Vial IVPUSH 37.5 mcg DAILY@0600 [facility] Administration Magnesium Hydroxide 30 ml 08/24/20 19:17 Milk Of Magnesia 30 Ml Oral.Susp PO DAILY PRN Constipation Pantoprazole Sodium 40 mg 08/25/20 06:30 08/25/20 06:09 Pantoprazole Sodium 40 Mg/10 Ml Vial IVPUSH 40 mg BID@0630,1630 [facility] Administration Pharmacy Consult 1 each 08/24/20 16:16 Consult Rx Perform Med Rec MISCELLANE ONCE PRN Consult order Pharmacy Consult 1 each 08/24/20 19:34 Consult Rx Vancomycin Dosing MISCELLANE DAILY PRN Consult order Sodium Chloride 3 ml 08/25/20 00:00 08/25/20 07:46 0.9 % Sodium Chloride Flush 3 Ml Syringe IVFLUSH 3 ml QSHIFT [facility] Administration Home Medications Medication Instructions Recorded Confirmed Last Taken Type levothyroxine 1 tab PO DAILY 08/24/20 08/24/20 08/24/20 History Physical Exam Vital Signs: Vital Signs: Last Vital Signs Temp 98.5 F 08/25/20 11:24 Pulse 65 08/25/20 11:24 Resp 18 08/25/20 11:24 BP 142/65 H 08/25/20 11:24 Pulse Ox 99 08/25/20 11:24 Body Mass Index 23.6 Const: Other: dysarthric due to prior surgery General: cooperative, comfortable, no acute distress, alert, awake and Physically active Nutritional Appearance: average body habitus Orientation/consciousness: oriented to person, oriented to place and patient oriented x3 Limitations: no limitations and altered mental status HENMT: Other: Surgical scar with absent jaw to the right Head: Yes normal to inspection, Yes normocephalic and Yes atraumatic Ears: hearing grossly normal bilaterally and TM's normal bilaterally General nose exam: Normal external nose present Face and sinus: Yes normal facial exam Mouth: Normal oral and palatal mucosa present Throat: Yes posterior oropharynx normal, Yes tonsils normal and Yes uvula midline Eyes: General: appearance normal, both eyes and all related structures Pupils: Equal, round and reactive pupils present Neck: Neck: Yes normal visual inspection, Yes full ROM, Yes no lymphadenopathy, Yes no meningeal signs, Yes trachea midline, Yes supple and Yes no JVD Chest: Chest palpation & inspection: normal inspection of the chest Resp: Effort & Inspection: normal respiratory effort Auscultation: clear to auscultation bilaterally, breath sounds absent on the right (Mid posterior) and diminished lung sounds Cardio: Jugular venous distension: no JVD Palpation: normal PMI Rate: regular rate Rhythm: regular rhythm Heart sounds: S1 normal heart sound present and S2 normal heart sound present Peripheral pulses: Peripheral pulses 2+ throughout GI: Inspection: Yes normal to inspection Palpation (GI): Soft to palpation and Tenderness to palpation present (GI) (Mild epigastric discomfort. No rebound or guarding) Auscultation: normal bowel sounds Rectal Exam - Female: normal sphincter tone and heme positive stool (black) Back/Spine/Pelvis: Thoracic/Lumbar Spine: thoracic and lumbar spine normal to inspection Skin: General skin exam: no rashes or lesions noted Neuro: General: oriented to person, oriented to place, patient oriented x3, moves all extremities, no meningeal signs and Unable to assess gait Cranial nerves: Yes Equal, round and reactive pupils present, Yes Bilaterally intact EOM present and Yes Midline tongue present Speech: No Abnormal speech present Gait exam (Neuro): Unable to assess gait Motor exam (neuro): 5/5 motor strength present throughout Sensory Exam: Normal double simultaneous stimulation for sensation Extrem: Other: Ecchymosis several areas noted over bilateral forearms and upper arms General: Yes normal to inspection, Yes no clubbing, cyanosis or edema, Yes no pedal edema and Yes no calf tenderness Psych: Appearance: grossly normal Results Labs CBC & Chem 7: 08/25/20 05:36 08/25/20 05:36 Labs: Short CBC 08/24/20 08/25/20 Range/Units 14:09 05:36 WBC 8.7 6.3 (4.8-10.8) X10*3/uL Hgb 8.6 L 7.9 L (12.0-16.0) g/dl Hct 25.5 L 23.5 L (37-47) % Plt Count 258 226 (160-400) X10*3/uL BMP 08/24/20 08/24/20 08/25/20 14:09 19:55 05:36 Sodium 139 140 141 Potassium 2.8 L 3.5 D 3.1 L Chloride 95 L 101 107 Carbon Dioxide 33 H 27 27 BUN 47 H 41 H 33 H Creatinine 1.64 H 1.27 1.25 Calcium 13.3 H* 11.0 H D 10.4 H Liver Function 08/24/20 Range/Units 14:09 Total Bilirubin 0.6 (0.0-1.0) mg/dL Direct Bilirubin 0.2 (0.0-0.5) mg/dL AST 171 H (5-31) U/L ALT 42 H (0-31) U/L Alkaline Phosphatase 69 (39-117) U/L Albumin 4.2 (3.5-5.0) g/dL Urine 08/24/20 Range/Units 17:52 Urine Color YELLOW Urine Appearance CLEAR Urine pH 6.0 (5.0-8.0) Ur Specific [place] 1.015 (1.005-1.025) Urine Protein TRACE (NEG-TRACE) MG/DL Urine Glucose (UA) NEG (NEG) MG/DL Microbiology Microbiology Results: Microbiology 08/24/20 14:19 Blood - Venous Blood Culture - Preliminary Strep agalactiae (Grp B) Assessment and Plan (1) Pneumonia: Status: Acute (2) Anemia: Status: Acute 1/ Anemia with marocytosis, possible melena, on nsaid maybe nutritional or PUD due to NSAID 2/ G tube placement request-refused by patient, MBS with aspiration, penetration and retention 3/ confusion from oneumonia, lyte defc with grp B strep on blood cultures PLAN: 1/ consider NGT or parenteral nutrition if patient conts to refuse G tube--if she changes mind then can place G tube 2/ EGD tomorrow to check for any GI blood loss, PUD, mass, neoplasia, duodenal bx 3/ cont with PPI 4/ check b12, folate, iron and ferritin, celiac panel Procedures Date of Service Date of Service: 08/25/20
--- NOTE | 2020-08-25 13:00 | MHC.CLN ---
RE: CONSULT PT REPORTS WT LOSS AND POOR PO HOWEVER UNABLE TO SPECIFY TIME FRAME FOR WT LOSS. PT'S DAUGHTER STATED PT HAS GAINED WT BUT CAN NOT SPECIFY AMOUNT. PT EATS ONLY BABY CEREAL AND YOGURT. DAUGHTER REPORTED PT RECEIVED ENSURE IN THE PAST BUT STOPPED DRINKING. PT APPEARS WELL NOURISHED. DIET RX: NPO-APPROPRIATE HEAD BANQUET WAITER/WAITRESS FOLLOWING FOR APPROPRIATE DIET CONSISTENCY. MBS SCHEDULED TODAY PENDING IF DIET TO ADVANCE; RECOMMEND ADDING ENSURE BID TO INCREASE KCALS PLS CONSULT RD IF TF NEEDED; NOTED GI CONSULT PENDING FOLLOWING
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
--- NOTE | 2020-08-25 14:09 | PM.EVENT ---
Event Note Date of Service: 08/25/20 Event Note: PULMONARY NOTE THIS 65 YEARS OLD FEMALE SEEN THIS MORNING FOR PULMONARY CONSULTATION. COMPLETE PULMONARY CONSULT NOTE IS DICTATED. A: POLY SUBSTANCE ABUSE. LEFT LOWER LOBE PNEUMONIA, COMMUNITY-ACQUIRED VS ASPIRATION, DUE TO CHANGE IN MENTAL STATUS. P: AGREE WITH THE CURRENT TREATMENT, ONCE THE BLOOD CULTURE REPORTS ARE AVAILABLE, ANTIBIOTIC REGIMEN CAN BE DOWN ADJUSTED. HYPOXEMIA IS CORRECTED WITH THE USE OF VENTI MASK/50% FIO2 AT THIS TIME. BUT SHE WOULD NEED TO BE WATCHED CLOSELY FOR ANY IMPENDING ARDS. ALSO MONITOR THE BLOOD GASES ON A DAILY BASIS FOR THE NEXT FEW DAYS.
[2020-08-25] MEDS: cefTRIAXone sodium 1 GM in 0.9 % Sodium Chloride 50 ML IV (14:56)
[2020-08-25] MEDS: Lidocaine 4 % Patch ADH..PATCH 1 PATCH TRANSDERMA (14:56)
[2020-08-25 16:35] LABS: Vitamin B12 459 pg/mL (200-900)
--- NOTE | 2020-08-25 16:44 | PM.EVENT ---
Event Note Date of Service: 08/25/20 Event Note: PULMONARY NOTE. PATIENT WAS SEEN BY ME FOR PULMONARY CONSULTATION. I REVIEWED THE HISTORY, EXAMINED THE PATIENT AND ALSO REVIEWED LAB/CHEST IMAGING. COMPLETE NOTE IS DICTATED. A: PARTIAL COLLAPSE OF RIGHT MIDDLE LOBE, SECONDARY TO MUCUS PLUGGING. HISTORY OF DYSPHAGIA AND POSSIBILITY OF RECURRENT PULMONARY ASPIRATIONS. P: AGREE WITH THE CURRENT TREATMENT, KEEP ON O2 SUPPLEMENTATION TO KEEP O2 SAT ABOVE 90% CONTINUE LUX MICHELLE AND I HAVE ADDED MUCOMYST SOLUTION VIA NEBULIZER Q.I.D.. PATIENT DOES NOT NEED BRONCHOSCOPIC EXAMINATION AT THIS TIME, BUT WILL FOLLOW CLOSELY.
--- NOTE | 2020-08-25 17:43 | MHC.SL.IMP ---
Date of Plan of Treatment: 08/26/20 Onset of Symptoms/Illness: 08/26/20 Date Treatment Started: 08/26/20 Admitting Diagnosis: Primary (admitting) Diagnosis: Metabolic encephalopathy secondary to hypercalcemia and pneumonia complicated by group B strep bacteremia Year of Onset or Diagnosis: 2020 Comorbidities: Dysphagia Anemia Acute kidney injury Hyperkalemia Hypercalcemia Mildly elevated troponin Primary Speech & Language Diagnosis: R13.12 Oropharyngeal Phase Dysphagia Secondary Speech & Language Diagnosis: R47.1 Dysarthria Reason for Today's Visit: [id number] Modified Barium Swallow Study Comments: Pt reported baseline diet of pureed solids, stating she eats baby food mostly. She reported no difficulties with swallowing liquids though admitted to coughing more frequently during meals. Pt reported that she has never had a swallowing evaluation in the past. Pt's speech is difficult to understand due to limited range of motion. Pre-evaluation Dietary Consistencies: NPO Pre-evaluation Liquid Consistency: NPO Pre-evaluation Medication Administration: NPO Medical History: Cancer: Head & Neck Comments: Modified Barium Swallow Study Fluoroscopic Evaluation of Swallowing Function CPT Code 86758 Evaluation Year: 2020 Reason for Study: History of dysphagia and previous G-tube placement. Referring Physician: Eliceo Lambert M.D. Evaluating Clinician: Sofya Carpenter M.A. [facility]-DENITRATOR OPERATOR Study Number: 1 Patient Name: Beckie Santiago Status: Inpatient, Wheelchair Age: 65 Gender: Female MEDICAL HISTORY: Primary (admitting) Diagnosis: Metabolic encephalopathy secondary to hypercalcemia and pneumonia complicated by group B strep bacteremia Year of Onset or Diagnosis: 2020 Comorbidities: Dysphagia Anemia Acute kidney injury Hyperkalemia Hypercalcemia Mildly elevated troponin Past Medical History: Cancer of jaw Hypothyroidism Current (pre-evaluation) Intake/Diet: Route: PO Diet Grade: Puree Liquid Consistencies: Thin Pre-Study Functional Oral Intake Scale (FOIS): 5- Total oral intake of multiple consistencies requiring special preparation Pain: None reported at time of study Oral Motor Exam Facial Symmetry: Asymmetrical Facial Movement: Controlled Oral-Facial Facial Miscellaneous Observations: Patient had mandibular resection. Also noted asymmetry of tongue. Mouth Occlusion: Lateral Displacement Oral-Facial Teeth Characteristics: Edentulous Oral-Facial Teeth Miscellaneous Observation: Oral-Facial Lip Pucker Description: Reduced ROM Weak Oral-Facial Smile (Lips) Description: Reduced ROM Oral-Facial Puff Cheeks Description: Reduced Strength Nasal Emission Tongue Size: Asymmetrical Tongue Excursion Description: Incomplete Tongue Range of Movement Description: Reduced Tongue Speed of Movement Description: Reduced Tongue Strength of Movement (against opposing pressure): Reduced Tongue Movement Characteristics: Tongue Movement Miscellaneous Observation: Patient was unable to protrude or lateralize tongue. Oral Expression Ability: Severe Impairment Is patient able to manage secretions?: Yes Is patient able to produce volitional cough?: Yes Food and Liquid Trials: Oral Impairment: Lip Closure: 1=Interlabial escape; no progression to anterior tip Oral Impairment: Tongue Control During Bolus Hold: 3=Posterior escape of greater than half of bolus Oral Impairment: Bolus Preparation/Mastication: Did not test Oral Impairment: Bolus Transport/Lingual Motion: 4=Minimal to no tongue motion Oral Impairment: Oral Residue: 2=Residue collection on oral structures Oral Impairment:Initiation of Pharyngeal Swallow: 4=No visible initiation at any location Pharyngeal Impairment: Soft Palate Elevation: 1=Trace column of contrast or air between SP and PW Pharyngeal Impairment: Laryngeal Elevation: 3=No superior movement of thyroid cartilage Pharyngeal Impairment: Anterior Hyoid Excursion: 2=No anterior movement Pharyngeal Impairment: Epiglottic Movement: 2=No inversion Pharyngeal Impairment: Laryngeal Vestibular Closure:: 1=Incomplete: narrow column air/contrast in laryngeal vestibule Pharyngeal Impairment: Pharyngeal Stripping Wave: 2=Absent Pharyngeal Impairment: Pharyngeal Contraction: Did not test Pharyngeal Impairment: Pharyngoesophageal Segment Openin=Partial distention/partial duration: partial obstruction of flow Pharyngeal Impairment: Tongue Base (TB) Retraction: 4=No visible posterior motion of tongue base Pharyngeal Impairment: Pharyngeal Residue: 4=Minimal to no pharyngeal clearance Pharyngeal Impairment: Esophageal Clearance Upright Position: Did not test Impressions and Recommendations Clinical Observations: OBJECTIVE: Time-out: performed at 02:30 Evaluation Start: 02:15; Stop: 02:20 Patient Positioning: Seated 70-90 degrees Viewing Planes: LATERAL ONLY Contrast: MBSImP? Standardized Protocol using commercially prepared, standardized Barium viscosities, including: Varibar? THIN LIQUID (40% w/v, <15 cps) , Varibar? NECTAR (40% w/v, <150-450 cps) , Varibar? THIN HONEY (40% w/v, <800-1800 cps) MBSImP ID: [id number] MBSImP Results: Lip closure for intraoral bolus containment resulted in interlabial escape, without progression to the anterior lip. Tongue control during bolus hold allowed posterior escape of greater than half of the bolus. Bolus preparation and mastication received the highest impairment score; solid not given due to patient safety concerns related to oral impairment. Bolus transport/lingual motion yielded only minimal to no tongue motion. Oral residue was a collection on oral structures. Initiation of the pharyngeal swallow was not visible at any level. Soft palate elevation allowed a trace column of contrast or air between the soft palate and the pharyngeal wall. Laryngeal elevation demonstrated no superior movement of the thyroid cartilage. Anterior hyoid excursion demonstrated no movement. Epiglottic movement resulted in no inversion. Laryngeal vestibular closure was incomplete, with a narrow column of air/contrast noted within the laryngeal vestibule at the height of the swallow. Pharyngeal stripping wave was absent. Pharyngeal contraction could not be determined due to logistical reasons not related to physiologic impairment. Pharyngoesophageal segment opening demonstrated partial distension/partial duration, with partial obstruction of bolus flow. Tongue base retraction resulted in no visible posterior motion of the the tongue base. Pharyngeal residue resulted from minimal to no pharyngeal clearance. Esophageal clearance in the upright position could not be assessed due to logistical reasons not related to physiologic impairment. Oral Impairment Score: 16 Pharyngeal Impairment Score: 20 (absence of score, component 13) Esophageal Impairment Score: --- (absence of score, component 17) Laryngeal Penetration and Aspiration: Both Penetration and Aspiration were observed in today's study. Pudding-thick, Honey-thick, [place]-thick Contrast entered the airway, contacted the vocal folds, and were not ejected from the airway. Thin Contrast entered the airway, passed below the vocal folds, and was not ejected from the trachea despite effort. Thin Contrast entered the airway, passed below the vocal folds, and no effort was made to eject. Structural Abnormalities Noted: MANDIBULAR RESECTION ASYMMETRY OF TONGUE ASSESSMENT: This exam was conducted by radiologist and speech language pathologist. Patient was seated in chair upright at optimal 90 degree position for lateral view only. Patient was handed food and liquid items and was able to feed herself. Patient trialed the following liquid and solid consistencies: -honey thick liquid barium -nectar thick liquid barium -thin liquid barium -pureed solid (applesauce mixed with barium paste) Patient displayed PROFOUND oropharyngeal dysphagia, characterized by impairments in the following components of swallow physiology: ORAL PHASE: -INTERLABIAL ESCAPE of bolus with no progression to anterior lip -POSTERIOR ESCAPE OF BOLUS (greater than half of bolus) prior to initiation of pharyngeal swallow trigger -MINIMAL TO NO AP TRANSPORT tongue movement -Moderate ORAL RESIDUE -DELAYED pharyngeal swallow trigger when bolus head reached pyriforms PHARYNGEAL PHASE: -Trace column of CONTRAST BETWEEN SOFT PALATE AND PHARYNGEAL WALL -MINIMAL TO NO SUPERIOR MOVEMENT OF THYROID CARTILAGE -NO ANTERIOR HYOID MOVEMENT -NO EPIGLOTTIC INVERSION -INCOMPLETE LARYNGEAL VESTIBULAR CLOSURE resulting in deep penetration with all consistencies and aspiration with thin liquid -ABSENT PHARYNGEAL STRIPPING WAVE -PARTIAL DISTENTION/ obstruction of flow through PES -NO VISIBLE POSTERIOR MOTION OF TONGUE BASE -MINIMAL TO NO PHARYNGEAL CLEARANCE diffusely. Retention on tongue base, valleculae, pyriforms, posterior pharyngeal wall. Noted deep penetration with all consistencies. Contrast entered the airway, reaching the vocal folds. Patient was cued for a variety of strategies in an attempt to clear contrast from airway: volitional cough, throat clear, multiple swallows, effortful swallow. These strategies had no effect. Patient was unable to clear contrast from airway. Evidence of aspiration when patient took cup sip of thin liquid. Contrast entered the airway reaching the vocal folds. When patient swallowed, thin liquid contrast and residue from pyriform sinuses entered airway and passed below the vocal folds, resulting in aspiration. Patient was cued to cough and clear her throat. This again was unsuccessful. Based on observations made during this exam, patient is at high risk of aspiration. The following compensatory strategies appear to have had a negative impact on swallowing function: Additional Swallow(s) per Bolus increased Aspiration Liquid Intake Recommendation: NPO Liquid Intake Strategies: Dietary Recommendations: NPO Medication Administration: NPO Compensatory Strategies Recommended: Supervision during eating and or drinking: PO with DENITRATOR OPERATOR Recommended Treatments: Base of Tongue Exercises Thermal Stimulation Pharyngeal Resistive Exer Compens. Strategy Educat. Vocal Cord Adduction Exer Recommendation for Speech Therapy: Speech Therapy through [facility] Speech Therapy through Rehab Facility Modified Barium Swallow Study - Outpatient Text Comment: Based on results of this exam, patient is at high risk of aspiration. Recommend NPO status and consult with GI/RD to determine candidacy/appropriateness of alternative means to nutrition. Recommend keep head of bed elevated at least 30 degrees to reduce risk of microaspiration and frequent oral care (at least 4 times daily). Recommend dysphagia treatment with a speech language pathologist (trial exercises versus thermal/electrical stimulation; provide additional support and education RE: risks of aspiration). Recommend repeat MBSS 8-12 weeks post treatment to monitor for any changes if appropriate. Intake Recommendations: Route: NPO/Alternate Route Diet Grade: IDDSI Levels: Liquid Consistencies: IDDSI Levels: Post-Study Functional Oral Intake Scale (FOIS): 1- No oral intake Suggested Referrals: The patient might benefit from a referral to: -Gastroenterology Indication for Referral: to assess for possible feeding tube -Oncology Indication for Referral: for ongoing care and management -Nutrition Services Indication for Referral: to assess for possible tube feeds Therapy Recommendations: Therapy will be continued Prognosis for Improvement: The prognosis for the patient to meet nutritional needs by mouth is poor based on degree of impairment, stimulability for treatment. Timeline to reassess: 3 months Clinician - Supplemental, Miscellaneous Communication: It is important to note that MBSS objective studies are snapshots in time and patient function might vary with factors such as time of day or concomitant medical conditions. For this reason, the final treatment plan for this patient should rest with their medical care team. Additional recommendations should be considered with the totality of the patient in mind. Thank you for the opportunity to participate in the care of this patient. If you have any questions about the content of this report, please contact the [facility] at [facility]. Education: Education regarding findings from today's study and plans for therapy were provided to Patient only through Verbal Instruction. Calendering Machine Operator Clinician/Clinical Fellow: No Supervisory Statement: N/A Speech Language Pathologist: Sofya Carpenter M.A., CCC-DENITRATOR OPERATOR
[2020-08-25 18:22] LABS: Iron 30 mcg/dL (30-160); Percent Iron Saturation 10 % (15-50); Total Iron Binding Capacity 290 mcg/dL (228-428); Unsaturated Iron Binding 260 ug/dL
[2020-08-25 18:28] LABS: Ferritin 47 ng/mL (10-250)
--- NOTE | 2020-08-25 19:12 | PM.CNNEP ---
History of Present Illness Reason for Consult Consult date: 08/25/20 Reason for consult: ABRAHAM and hypoK Chief Complaint Chief complaint: Confusion History of Present Illness Narrative: 65-year-old female adm w AMS and noted ABRAHAM and hyperK and clinically dehydrated and on NSAID,. Renal func improved after IVF and H/O poor po intake. 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 diet-per family patient eats only baby cereal and yogurt and has been having dysphagia issues. Also with a history of back pain-takes Motrin; history of hypothyroidism on levothyroxine; tobacco dependence; lives with the daughter for the past 2 years presented to the hospital with a chief complaint of confusion. Per ER and hosp notes patient has been having confusion for the past 1 day as per the daughter and daughter mentioned that she is not sure the patient has taken extra dose of her home medications. Denies the patient complaining any chest pain palpitations lightheadedness dizziness. Denies having fevers. Review of Systems Review of Systems Limited due to confusion Constitutional: Reports no additional constitutional complaints, Denies body ache(s), Denies chills, Reports fatigue, Denies fever(s), Denies headache(s), Reports lethargy and Denies weakness Eyes: Reports no additional eye complaints and Denies change in vision Reports system reviewed and no additional complaints, except as documented, Denies dizziness, Denies headache(s), Denies nasal congestion, Denies nasal discharge and Denies neck pain Cardiovascular: Reports no additional cardiovascular complaints, Denies chest pain, Denies leg edema and Denies dyspnea Respiratory: Reports no additional respiratory complaints, Reports cough (Chronic) and Denies dyspnea Gastrointestinal: Reports no additional gastrointestinal complaints, Reports abdominal pain (Epigastric), Reports diarrhea, Reports nausea and Denies vomiting Musculoskeletal: Reports no additional musculoskeletal complaints, Reports back pain, Denies arthralgias, Denies joint swelling, Denies neck pain, Denies numbness and Denies tingling Skin/Breast: Reports system reviewed and no additional complaints, except as docu and Denies rash Reports system reviewed and no additional complaints, except as documented, Denies Abnormal speech present, Reports confusion, Denies dizziness, Denies headache(s), Denies numbness, Denies tingling and Denies weakness Psychiatric: Reports no additional psychiatric complaints and Reports confusion Endocrine: Reports no additional endocrine complaints and Reports fatigue PMFSH Past Medical History Medical History Cancer of jaw Hypothyroidism Social History Social History Household Members: Children and Other Household Members Other:: states she lives with her mother, but ed reporting states living with daugh Housing: House Do you presently have visiting nurse or other home services: No (used to have services but states they stopped 3 years ago) Alcohol intake: current Alcohol intake frequency: 3 or more drinks per day Alcohol type: beer Patient Tobacco Use Status: Current someday Tobacco user Tobacco use type: Cigarette Cigarette Packs Per Day: 1 Cigarettes Per Day: 20.0 Years Smoked: 35 service: No Current occupational status: disabled Meds Allergies Allergy/AdvReac Type Severity Reaction Status Date / Time No Known Allergies Allergy Verified 08/24/20 13:45 Active Medications: Current Medications Generic Name Dose Route Start Last Admin Trade Name Freq PRN Reason Stop Dose Admin Acetaminophen 650 mg 08/24/20 19:17 Acetaminophen 325 Mg Tablet PO Q6H PRN Pain, Mild (Pain Scale 1-3) Acetylcysteine 400 mg 08/25/20 12:00 08/25/20 15:05 Acetylcysteine 10 % 400 Mg/4 Ml Vial INHALE 400 mg RQ4H WHILE AWAKE ARIAN Administration Enoxaparin Sodium 40 mg 08/24/20 20:00 08/24/20 22:10 Enoxaparin Sodium 40 Mg/0.4 Ml Syringe SUBCUT Not Given Q24H ARIAN Dextrose/Sodium Chloride 1,000 mls @ 100 mls/hr 08/24/20 19:30 08/25/20 16:34 D5ns IVCONT 100 mls/hr .Q10H ARIAN Administration Ceftriaxone Sodium 1 gm/ 50 mls @ 100 mls/hr 08/25/20 14:00 08/25/20 15:26 Sodium Chloride IV Infused Q24H ARIAN Infusion Levothyroxine Sodium 37.5 mcg 08/25/20 06:00 08/25/20 06:10 Levothyroxine Sodium 100 Mcg Vial IVPUSH Not Given DAILY@0600 ARIAN Levothyroxine Sodium 37.5 mcg 08/25/20 06:00 08/25/20 06:09 Levothyroxine Sodium 100 Mcg/5 Ml Vial IVPUSH 37.5 mcg DAILY@0600 [facility] Administration Lidocaine 1 patch 08/25/20 13:15 08/25/20 14:56 Lidocaine 4 % Patch Adh..Patch TRANSDERMA 1 patch DAILY [facility] Administration Protocol Magnesium Hydroxide 30 ml 08/24/20 19:17 Milk Of Magnesia 30 Ml Oral.Susp PO DAILY PRN Constipation Pantoprazole Sodium 40 mg 08/25/20 06:30 08/25/20 16:32 Pantoprazole Sodium 40 Mg/10 Ml Vial IVPUSH 40 mg BID@0630,1630 [facility] Administration Pharmacy Consult 1 each 08/24/20 16:16 Consult Rx Perform Med Rec MISCELLANE ONCE PRN Consult order Pharmacy Consult 1 each 08/24/20 19:34 Consult Rx Vancomycin Dosing MISCELLANE DAILY PRN Consult order Sodium Chloride 3 ml 08/25/20 00:00 08/25/20 15:26 0.9 % Sodium Chloride Flush 3 Ml Syringe IVFLUSH 3 ml QSHIFT [facility] Administration Home Medications Medication Instructions Recorded Confirmed Last Taken Type levothyroxine 1 tab PO DAILY 08/24/20 08/24/20 08/24/20 History Physical Exam Vital Signs: Last Vital Signs Temp 98.2 F 08/25/20 15:11 Pulse 60 08/25/20 15:11 Resp 19 08/25/20 15:11 BP 160/79 H 08/25/20 15:11 Pulse Ox 100 08/25/20 15:11 Body Mass Index 23.6 Const Other: dysarthric due to prior surgery General: cooperative, comfortable, no acute distress, alert, awake, Physically active and confusion Nutritional Appearance: average body habitus Orientation/consciousness: oriented to person, oriented to place, patient oriented x3 and confusion Limitations: no limitations and altered mental status HENMT Other: Surgical scar with absent jaw to the right Head: Yes normal to inspection, Yes normocephalic and Yes atraumatic Ears: hearing grossly normal bilaterally and TM's normal bilaterally General nose exam: Normal external nose present Face and sinus: Yes normal facial exam Mouth: Normal oral and palatal mucosa present Throat: Yes posterior oropharynx normal, Yes tonsils normal and Yes uvula midline Eyes General: appearance normal, both eyes and all related structures Pupils: Equal, round and reactive pupils present Neck Neck: Yes normal visual inspection, Yes full ROM, Yes no lymphadenopathy, Yes no meningeal signs, Yes trachea midline, Yes supple and Yes no JVD Chest Chest palpation & inspection: normal inspection of the chest Resp Effort & Inspection: normal respiratory effort Auscultation: clear to auscultation bilaterally, breath sounds absent on the right (Mid posterior) and diminished lung sounds Cardio Jugular venous distension: no JVD Palpation: normal PMI Rate: regular rate Rhythm: regular rhythm Heart sounds: S1 normal heart sound present and S2 normal heart sound present Peripheral pulses: Peripheral pulses 2+ throughout GI Inspection: Yes normal to inspection Palpation (GI): Soft to palpation and Tenderness to palpation present (GI) (Mild epigastric discomfort. No rebound or guarding) Auscultation: normal bowel sounds Rectal Exam - Female: normal sphincter tone and heme positive stool (black) Back/Spine/Pelvis Other: Surgical incision noted to lumbar spine with some mild tenderness. No step-offs or deformities. Thoracic/Lumbar Spine: thoracic and lumbar spine normal to inspection Skin General skin exam: no rashes or lesions noted Neuro General: oriented to person, oriented to place, patient oriented x3, moves all extremities, no meningeal signs, confusion and Unable to assess gait Cranial nerves: Yes Equal, round and reactive pupils present, Yes Bilaterally intact EOM present and Yes Midline tongue present Speech: No Abnormal speech present Gait exam (Neuro): Unable to assess gait Motor exam (neuro): 5/5 motor strength present throughout Sensory Exam: Normal double simultaneous stimulation for sensation Extrem Other: Ecchymosis several areas noted over bilateral forearms and upper arms General: Yes normal to inspection, Yes no clubbing, cyanosis or edema, Yes no pedal edema and Yes no calf tenderness Psych Appearance: grossly normal Results Lab Results Result Diagrams: 08/25/20 05:36 08/25/20 05:36 Lab results: Chemistry 08/24/20 08/24/20 08/25/20 14:09 19:55 05:36 Sodium 139 140 141 Potassium 2.8 L 3.5 D 3.1 L Carbon Dioxide 33 H 27 27 BUN 47 H 41 H 33 H Creatinine 1.64 H 1.27 1.25 Calcium 13.3 H* 11.0 H D 10.4 H Hematology 08/24/20 08/25/20 14:09 05:36 WBC 8.7 6.3 Hgb 8.6 L 7.9 L Plt Count 258 226 Urinalysis 08/24/20 17:52 Urine Color YELLOW Urine Appearance CLEAR Urine pH 6.0 Ur Specific [place] 1.015 Urine Protein TRACE Urine Glucose (UA) NEG Urine Ketones NEG Urine Blood 1+ H Urine Nitrite NEG Ur Leukocyte Esterase NEG Urine RBC 0-2 Urine WBC 0-2 Ur Squamous Epith Cells 1+ Hyaline Casts 0-2 Assessment and Plan (1) Pneumonia: Status: Acute (2) Anemia: Status: Acute 1. ABRAHAM: resolving with IVF and despite BP not low still suspect vol depleted given rapidity of renal improvement 2. CKD 3: low muscle mass and eGFR < true GFR 3. HypoK: 2ry hyperaldo from decr IV vol vs poor PO intake/malutrtion 4. Anemia:w/u in progress REC: cont K replacement; encourage incr PO fluid intake and may need aditional IVF; may need IV Fe will follow with team Procedures Date of Service Date of Service: 08/25/20
--- NOTE | 2020-08-25 20:09 | CONS_ITS ---
DATE OF SERVICE: 08/25/2020 HISTORY OF PRESENT ILLNESS: This 65-year-old female, very pleasant, is admitted to the hospital since yesterday with report of some mental confusion and slightly increased shortness of breath. In the emergency room, noted to be somewhat hypoxemic, but she was not in respiratory distress. CT scan of the chest suggesting mucus plugging and collapse of the right middle lobe. The patient denies having any fever, chills, or chest pain. The patient does have difficulty in swallowing, but there is no history of any particular incidence of pulmonary aspiration. 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 The patient has previous history of dysphagia and had G-tube for feeding, which was recently removed. The patient is on baby food and yogurt, etc. Has been swallowing well, but according to the family, she has had some difficulty in swallowing with some choking episodes. Patient denies any history of chronic lung disease, especially she does not have history of bronchial asthma or COPD. At home, she is not on oxygen or any bronchodilators. The patient quit smoking 2 years ago, but she does have history of smoking prior to that. The patient being treated for hypothyroidism. PHYSICAL EXAMINATION: GENERAL: This morning she is up in the chair, very pleasant and conversing well though her speech is not fully understandable. VITAL SIGNS: Respiratory rate 18, temperature is normal, heart rate is 80. HEENT: Throat, difficult to examine. NECK: No JVD. Trachea midline. CHEST: Symmetrical. Percussion note is resonant. She has breath sounds, which is somewhat distant. Few inspiratory crepitations in the right mid chest. No wheezes. Left side is fully clear. CARDIAC: Sounds are normal. No murmurs or gallops. EXTREMITIES: No edema or varicosities. LABORATORY DATA: White cell count 6.3, hemoglobin 7.9. COVID test is negative. Chemistries reveal sodium 141, potassium 3.1, chloride 107, BUN 33, creatinine 1.24. IMAGING: CT scan of the chest is reviewed and there is evidence of partial collapse of the right middle lobe. Also, there is evidence of mucus/debris impacting the main bronchial tubes, especially on the right side. IMPRESSION: 1. Mucus plugging with partial collapse of the right middle lobe, most likely due to pulmonary aspiration. 2. Past history of left mandibular resection, dysphagia, and history of pulmonary aspiration. 3. Past history of smoking. RECOMMENDATION: 1. Oxygen supplementation as needed to keep O2 saturation above 90%. DuoNeb updrafts q.6 hours while awake. 2. I would add Mucomyst in the updrafts 3 times a day. 3. N.p.o. to avoid any further aspiration. 4. Continue antibiotic as has been started. 5. Will watch the patient closely and repeat chest x-ray in 24 hours. 6. If there is no significant improvement and there is presence of mucus plugging, then she would benefit from bronchoscopic exam and bronchial lavage. Thank you very much for asking me to see this patient. MD PHU Malik/GRADY / [phone]
[2020-08-25] MEDS: Enoxaparin Sodium 40 MG/0.4 ML SYRINGE SUBCUT (20:56)
[2020-08-25] MEDS: diphenhydrAMINE HCL 50 MG/ML VIAL 25 MG IVPUSH (23:28)
[2020-08-26] VITALS (11 sets, daily range): BP systolic 155–190; BP diastolic 57–79; PULSE 52–64; RESP 15–18; TEMP 35.7–37.7; O2SAT 95–100
[2020-08-26] MEDS: Pantoprazole Sodium 40 MG/10 ML VIAL IVPUSH ×2 (05:53→17:06)
[2020-08-26] MEDS: Levothyroxine Sodium 100 MCG/5 ML VIAL 37.5 MCG IVPUSH (05:53)
[2020-08-26 06:47] LABS: Hematocrit 24.9 % (37-47); Hemoglobin 8.3 g/dl (12.0-16.0); Mean Corpuscular HGB Conc 33.3 g/dl (31.0-35.0); Mean Corpuscular Hemoglobin 34.6 pg (27.0-33.0); Mean Corpuscular Volume 103.8 fL (80-98); Mean Platelet Volume 10.2 fL (9.4-12.3); Platelet Count 230 X10*3/uL (160-400); Red Cell Distribution Width 12.7 % (11.0-16.0); White Blood Count 8.1 X10*3/uL (4.8-10.8)
[2020-08-26 07:05] LABS: Alanine Aminotransferase 47 U/L (0-31); Albumin Level 3.2 g/dL (3.5-5.0); Alkaline Phosphatase 60 U/L (39-117); Anion Gap 12 (12-20); Aspartate Amino Transferase 137 U/L (5-31); Bilirubin Direct 0.2 mg/dL (0.0-0.5); Bilirubin Total 0.3 mg/dL (0.0-1.0); Blood Urea Nitrogen 20 mg/dL (9-16); Calcium 9.1 mg/dL (8.4-10.2); Carbon Dioxide 22 mmol/L (22-29); Chloride 112 mmol/L (96-108); Creatinine Clr Calc Pharmacy 44.9; Estimated Glomerular Filt Rate > 60; Glucose Fasting 76 mg/dL (60-99); Magnesium 1.7 mg/dL (1.6-2.6); Sodium 143 mmol/L (135-145); Total Protein 5.5 g/dL (6.5-8.0)
[2020-08-26] MEDS: Lidocaine 4 % Patch ADH..PATCH 1 PATCH TRANSDERMA (08:15)
[2020-08-26] MEDS: Potassium Chloride/H20 10 MEQ/100 ML PIGGYBACK 100 MEQ IV ×4 (08:17→12:21)
[2020-08-26] MEDS: 0.9 % Sodium Chloride Flush 3 ML SYRINGE IVFLUSH ×3 (08:18→21:23)
[2020-08-26] MEDS: diphenhydrAMINE HCL 50 MG/ML VIAL 12.5 MG IVPUSH ×2 (09:19→21:22)
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
[2020-08-26] MEDS: Dextrose 5 % and 0.9 % NaCl 1,000 ML 100 ML IVCONT ×2 (10:28→21:25)
--- NOTE | 2020-08-26 10:35 | PC.NURSE ---
Pt is AOx4. Pt is currently refusing telesitter. Rn explained why it is an extra safety precaution we are using with her as she came in with confusion, somewhat unsteady on her feet, and has the IV. Pt still refusing. Telesitter removed. Other high fall risk measures remain in place. Bed alarm on. Call mcmahon in reach. Red non slip socks on pt. Alerted aide to keep extra precautions on her as telesitter now removed.
[2020-08-26] MEDS: Acetylcysteine 10 % 400 MG/4 ML VIAL INHALE (11:20)
--- NOTE | 2020-08-26 12:37 | PC.NURSE ---
ok to travel off floor to endo w/o nurse per Dr Lambert
--- NOTE | 2020-08-26 12:58 | PM.PNPUL ---
Subjective Subjective Date of Service: 08/26/20 Principal diagnosis: PARTIAL ATELECTASIS RIGHT MIDDLE LOBE,, MUCUS PLUGGING, Q OF PNEUMONIA Interval history: PATIENT FEELING BETTER TODAY, HAS VERY LITTLE COUGH OR EXPECTORATION. SHOWS NO RESPIRATORY DISTRESS, OFF OXYGEN. PATIENT HAS BEEN NPO, NEEDED TO HAVE G-TUBE, BUT SHE IS DECLINING. Objective Data Labs CBC & Chem 7: 08/26/20 05:49 08/26/20 05:49 Labs: Laboratory Results - last 24 hr 08/24/20 08/25/20 08/26/20 19:55 05:36 05:49 WBC 8.1 RBC 2.40 L Hgb 8.3 L Hct 24.9 L MCV 103.8 H MCH 34.6 H MCHC 33.3 RDW 12.7 Plt Count 230 MPV 10.2 Absolute Nucleated RBC 0.000 Nucleated RBC % (auto) 0.0 Sodium Potassium Chloride Carbon Dioxide Anion Gap BUN Creatinine Estim Creat Clear Calc Estimated GFR Fasting Glucose Calcium Magnesium Iron 30 TIBC 290 % Saturation 10 L Unsat Iron Binding 260 Ferritin 47 Total Bilirubin Direct Bilirubin AST ALT Alkaline Phosphatase Total Protein Albumin Vitamin B12 459 08/26/20 05:49 WBC RBC Hgb Hct MCV MCH MCHC RDW Plt Count MPV Absolute Nucleated RBC Nucleated RBC % (auto) Sodium 143 Potassium 3.0 L Chloride 112 H Carbon Dioxide 22 Anion Gap 12 BUN 20 H Creatinine 0.93 Estim Creat Clear Calc 44.9 Estimated GFR > 60 Fasting Glucose 76 Calcium 9.1 D Magnesium 1.7 Iron TIBC % Saturation Unsat Iron Binding Ferritin Total Bilirubin 0.3 Direct Bilirubin 0.2 AST 137 H ALT 47 H Alkaline Phosphatase 60 Total Protein 5.5 L D Albumin 3.2 L D Vitamin B12 Microbiology Microbiology Results: Microbiology 08/24/20 14:19 Blood - Venous Blood Culture - Preliminary Strep agalactiae (Grp B) 08/24/20 14:09 Blood - Venous Blood Culture - Preliminary No growth after 24 hours. Physical Exam Vital Signs: Vital Signs: Last Vital Signs Temp 97.2 F 08/26/20 10:58 Pulse 62 08/26/20 11:22 Resp 18 08/26/20 10:58 BP 171/66 H 08/26/20 10:58 Pulse Ox 99 08/26/20 10:58 Body Mass Index 23.6 Const: General: comfortable, no acute distress, alert and awake Orientation/consciousness: patient oriented x3 HENMT: Head: Yes normal to inspection General nose exam: No nasal polyps present and No nasal discharge present Face and sinus: Yes sinuses nontender Mouth: oropharynx normal and other (STATUS POST RESECTION OF RIGHT MANDIBLE.) Throat: Yes posterior oropharynx normal Eyes: General: appearance normal, both eyes and all related structures Neck: Neck: Yes normal visual inspection, Yes no lymphadenopathy, Yes trachea midline and Yes no JVD Thyroid: Thyroid normal Chest: Chest palpation & inspection: normal inspection of the chest, normal palpation of entire chest wall and no tenderness Resp: Auscultation: no rales, no wheezes and diminished lung sounds Cardio: Palpation: normal PMI Rate: regular rate Rhythm: regular rhythm Heart sounds: no gallops and no murmurs GI: Palpation (GI): Soft to palpation, nontender, No hepatosplenomegaly present and no masses Auscultation: normal bowel sounds Back/Spine/Pelvis: Thoracic/Lumbar Spine: thoracic and lumbar spine normal to inspection Skin: General skin exam: no rashes or lesions noted Neuro: General: patient oriented x3 and no focal motor deficits Cranial nerves: Yes CN's II-XII intact bilaterally Extrem: General: Yes normal to inspection, Yes no clubbing, cyanosis or edema, Yes no calf tenderness and No venous stasis dermatitis Psych: Speech and movement: Normal speech and movement present Procedures Date of Service Date of Service: 08/26/20 Assessment and Plan Assessment and plan (1) Dysphagia: Problem details: PATIENT IS STATUS POST RIGHT MANDIBULAR RESECTION FOR CARCINOMA IN THE PAST. SHE DOES HAVE DIFFICULTY IN SWALLOWING PUTTING HER AT RISK OF PULMONARY ASPIRATIONS. PAST HISTORY OF G-TUBE BUT HAS BEEN REMOVED. PATIENT MAY HAVE HAD MICRO ASPIRATIONS CAUSING EXTRA MUCUS SECRETIONS AND PLUGGING OF THE BRONCHIAL TO. PATIENT IS DECLINING TO HAVE G-TUBE PLACED BACK. Status: Acute (2) Mucus plugging of bronchi: Problem details: PATIENT ADMITTED WITH THE PARTIAL ATELECTASIS OF THE RIGHT MIDDLE LOBE, SECONDARY TO MUCUS PLUGGING. CLINICALLY IT SEEMS TO HAVE RESOLVED AND SHE IS DEFINITELY IMPROVED. TX CONTINUE DUONEB UPDRAFTS. CONTINUE MUCOMYST IN UPDRAFTS BUT WILL REDUCE THE FREQUENCY TO B.I.D., MAY BE DC DID TOMORROW. Status: Acute (3) Atelectasis: Problem details: ON CHEST X-RAY AND CT SCAN SHE SEEMS TO HAVE PARTIAL ATELECTASIS OF THE RIGHT MIDDLE LOBE. CLINICALLY IT IS CLEARING, OXYGENATION IS MUCH IMPROVED. I DO NOT THINK SHE WOULD NEED BRONCHOSCOPY AT THIS TIME. Status: Acute Time Spent With Patient Time: Total time spent is greater than 50% in coordination of care (as documented) at patient's floor/unit and/or counseling patient: Time with patient: 15 - 24 minutes
--- NOTE | 2020-08-26 13:12 | MHC.CLN ---
F/U CURRENTLY NO DIET ORDER IN PLACE-WILL PLACE ORDER FOR NPO REVIEWED GI CONSULT-PT REFUSED G TUBE PLACEMENT AT THIS TIME PER MD NOTE: NPO, modified barium showed aspiration, recommending Gtube, however, patient is not interested, she has had gtube in past and does not want it again, she is aware of risks of aspiration but is willing to take those risks to avoid the decrease of quality of life with GTube. MBS COMPLETED AND DIRECTOR OF HEALTH EDUCATION CONTINUES TO RECOMMEND NPO IF DIET TO ADVANCE (WITH PT'S UNDERSTANDING OF ASPIRATION RISKS); RECOMMEND ADDING ENSURE BID TO INCREASE KCALS IF PT CHANGES MIND REGARDING TUBE FEEDING PLEASE CONSULT RD FOLLOWING
--- NOTE | 2020-08-26 15:10 | MHC.CM.PN ---
CM MET WITH PT TO DISCUSS DC PLANNING. PT REPORTS SHE PLANS TO DC TO HER MOTHERS HOME AND WILL HAVE HER COUSIN OR BROTHER IN LAW TRANSPORT. PT REPORTS SHE TALKED TO THE MD AND PER CONVERSATION, SHE BELIEVES SHE IS DISCHARGING ON SUNDAY. PT WILL DC TO HER MOTHERS HOME VIA FAMILY TRANSPORT
--- NOTE | 2020-08-26 15:18 | MHC.SHP ---
Pre-Procedural Eval Section A The patient is an INPATIENT: Yes The History & Physical has been completed within 30 days and I have reviewed it.: Yes Section B Chief Complaint: Confusion Details of Present Illness: anemia, Allergies: Allergies Allergy/AdvReac Type Severity Reaction Status Date / Time No Known Allergies Allergy Verified 08/24/20 13:45 Plan Diagnosis/Plan: Unchanged I have reviewed the history and physical and performed a pertinent physical examination on my patient. No changes have occurred unless specified.
[2020-08-26] MEDS: Lactated Ringers 1,000 ML 50 ML IVCONT (15:36)
--- NOTE | 2020-08-26 15:52 | P.BOP_ITS ---
Brief Operative Note Date of Service: 08/26/20 Pre-op diagnosis: dysphagia and anemia Post-op diagnosis: same Procedure: see op note Surgeon: Cherie Fowler MD Anesthesia: MAC Was an Supply Crib Attendant used for this Procedure?: No Estimated blood loss (mL): 0 Condition: stable Disposition: PACU
--- NOTE | 2020-08-26 15:53 | W.PM.OPN ---
Operative Note Operative Note Date of Service: 08/26/20 Narrative: Procedure Description: EGD FLEXIBLE TRANSORAL UPPER GASTROINTESTINAL ENDOSCOPY UPPER ENDOSCOPY Consent: Indications for the procedure and potential complications of bleeding, perforation, reaction to medications and missed diagnosis were discussed with the patient and informed consent was obtained. Instrument: Olympus GIF H 190 J mid size upper endoscope Monitoring: Vital signs and clinical assessment, continuous EKG monitoring, Pulse oximetry, Carbon Dioxide monitoring and blood pressure monitoring were done throughout the procedure. Procedure: The patient was placed in the left lateral decubitis position and pre-procedure medications were administered and a bite block was placed. The endoscope was inserted into the mouth and advanced under direct vision to the third part of duodenum. A careful inspection was made as the upper endoscope was withdrawn including a retroflexed examination of the proximal stomach; Findings and interventions are described below. Findings: Larynx:normal Esophagus: GE junction at 45 cm, diaphragm hiatus at 45 cm, mild esophagitis noted, balloon dilation done at LES and UES with resistance felt at 13.5 mm, no tears seen Stomach: Patchy gastric erythema. Biopsies were obtained to r/o h pylori. Grade 2 flap valve on retroflexed examination of the cardia. Duodenum: Moderate severe bulbar duodenitis, stellate shaped superficial ulcer noted romero grade III Intervention: Biopsies as noted above, balloon dilation Impression/Findings: duodenal ulcer gastritis esophagitis esophageal stricture PLAN: pantoprazole 40 mg BID If swallowing improves then PO sucralfate as well avoid nsaids
[2020-08-26] MEDS: cefTRIAXone sodium 1 GM in 0.9 % Sodium Chloride 50 ML IV (17:00)
--- NOTE | 2020-08-26 17:29 | PC.NURSE ---
When pt back from PACU took VS. BP 190/78. Hr 40s-60s. Other VSS. Assessed pt -states has a slight headache and is tired, wants to take a nap. aware.
[2020-08-26] MEDS: Enoxaparin Sodium 40 MG/0.4 ML SYRINGE SUBCUT (21:21)
[2020-08-27] VITALS (10 sets, daily range): BP systolic 119–194; BP diastolic 58–82; PULSE 56–74; RESP 18–20; TEMP 36.4–37; O2SAT 92–100
[2020-08-27] MEDS: Levothyroxine Sodium 100 MCG/5 ML VIAL 37.5 MCG IVPUSH (06:40)
[2020-08-27] MEDS: Pantoprazole Sodium 40 MG/10 ML VIAL IVPUSH ×2 (06:40→17:30)
[2020-08-27] MEDS: Dextrose 5 % and 0.9 % NaCl 1,000 ML 100 ML IVCONT (06:58)
[2020-08-27 07:07] LABS: Hematocrit 25.3 % (37-47); Hemoglobin 8.4 g/dl (12.0-16.0); Mean Corpuscular HGB Conc 33.2 g/dl (31.0-35.0); Mean Corpuscular Hemoglobin 34.4 pg (27.0-33.0); Mean Corpuscular Volume 103.7 fL (80-98); Mean Platelet Volume 10.2 fL (9.4-12.3); Platelet Count 248 X10*3/uL (160-400); Red Blood Count 2.44 X10*6/uL (4.20-5.50); Red Cell Distribution Width 12.9 % (11.0-16.0); White Blood Count 5.9 X10*3/uL (4.8-10.8)
[2020-08-27] MEDS: Lidocaine 4 % Patch ADH..PATCH 1 PATCH TRANSDERMA (07:10)
[2020-08-27] MEDS: 0.9 % Sodium Chloride Flush 3 ML SYRINGE IVFLUSH ×3 (07:11→22:01)
[2020-08-27 07:33] LABS: Anion Gap 9 (12-20); Blood Urea Nitrogen 11 mg/dL (9-16); Calcium 7.8 mg/dL (8.4-10.2); Carbon Dioxide 22 mmol/L (22-29); Chloride 115 mmol/L (96-108); Creatinine Clr Calc Pharmacy 52.2; Estimated Glomerular Filt Rate > 60; Glucose Fasting 90 mg/dL (60-99); Potassium 3.1 mmol/L (3.3-5.1); Sodium 143 mmol/L (135-145)
[2020-08-27] MEDS: Potassium Chloride/H20 10 MEQ/100 ML PIGGYBACK 100 MEQ IV ×4 (08:14→11:33)
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
--- NOTE | 2020-08-27 09:55 | HO.POSTANES ---
Post Anesthesia Evaluation Post Anesthesia Evaluation Vital Signs: Vital Signs Temp Pulse Resp BP Pulse Ox 08/27/20 07:26 97.7 F 58 18 186/81 H 98 08/27/20 04:00 97.6 F 74 20 188/82 H 92 08/26/20 23:50 97.5 F 59 18 166/79 H 99 Anesthesia: Monitored Mental Status: Awake Pain Control: Satisfactory Nausea/Vomiting: None Hydration: Adequate Anesthesia-Related Issues: No Anes. Related Issues
[2020-08-27] MEDS: Albuterol/Iprat 2.5/0.5MG 3 ML AMPUL.NEB INHALE ×2 (11:19→19:38)
[2020-08-27] MEDS: Enalaprilat Dihydrate 1.25 MG/ML VIAL 0.625 MG IVPUSH (11:40)
--- NOTE | 2020-08-27 12:13 | MHC.CLN ---
F/U PT REMAINS NPO DAY 4 PT NOT INTERESTED IN G TUBE PLACEMENT AWAITING GARMENT TAG STRINGER RE-EVAL S/P SX WITH DR LUCAS IF PO TO ADVANCE; RECOMMEND ADDING ENSURE BID TO INCREASE KCALS IF PT REMAINS NPO; RECOMMEND PPN D10 AA4.25% AT 30CC/HR TO START CONSULT RD IF NEEDED
[2020-08-27] MEDS: cefTRIAXone sodium 1 GM in 0.9 % Sodium Chloride 50 ML IV (14:17)
--- NOTE | 2020-08-27 14:57 | MHC.SLORD ---
Speech Language Pathology Order Status: Patient had surgical dilation. Inquired about having patient re-evaluated as she had esophageal dilation. During MBSS, penetration and aspiration was silent- no spontaneous cough reflex. Patient required cuing for volitional cough in an attempt to get material out of airway. Patient does not always show overt s/s. Not able to rule out aspiration at bedside. Observations made with MBSS include: significantly delayed swallow, posterior escape of bolus before swallow, minimal to no laryngeal elevation, no epiglottic inversion for airway protection, minimal to no posterior tongue movement, incomplete laryngeal vestibular closure resulting in aspiration. Question whether an esophageal dilation would make any significant change to impaired oral and pharyngeal phase. Thickened liquids were trialled during MBSS with no significant improvement. Hard solids withheld as patient is edentulous and exhibits difficulty moving her tongue and manipulating bolus. Continue to recommend NPO as safest option at this time..It is likely patient is aspirating on all consistencies. Per MD note, patient refused G-tube. If patient still chooses to eat for quality of life with understanding that exam showed aspiration, she likely will continue to aspirate, and risks of aspiration, she may consider continuing her pureed diet and nectar thick liquids, although questionable compliance to thickened liquids.
[2020-08-27 15:57] LABS: Calcium (PTHI) 11.3 mg/dL (8.6-10.4); PTHI 10 pg/mL (14-64)
[2020-08-27] MEDS: Dextrose 5 % and 0.9 % NaCl 1,000 ML 80 ML IVCONT (17:33)
[2020-08-27] MEDS: Acetylcysteine 10 % 400 MG/4 ML VIAL INHALE (19:38)
[2020-08-27] MEDS: Enoxaparin Sodium 40 MG/0.4 ML SYRINGE SUBCUT (21:56)
[2020-08-27] MEDS: HYDROmorphone HCl 0.5 MG/0.5 ML SYRINGE IVPUSH (22:21)
[2020-08-27] MEDS: diphenhydrAMINE HCL 50 MG/ML VIAL 12.5 MG IVPUSH (22:21)
[2020-08-28] VITALS (7 sets, daily range): BP systolic 150–179; BP diastolic 66–80; PULSE 59–72; RESP 16–20; TEMP 36.4–36.8; O2SAT 92–98
[2020-08-28] MEDS: Pantoprazole Sodium 40 MG/10 ML VIAL IVPUSH (06:05)
[2020-08-28] MEDS: Levothyroxine Sodium 100 MCG/5 ML VIAL 37.5 MCG IVPUSH (06:05)
[2020-08-28 07:03] LABS: Hematocrit 25.1 % (37-47); Hemoglobin 8.1 g/dl (12.0-16.0); Mean Corpuscular HGB Conc 32.3 g/dl (31.0-35.0); Mean Corpuscular Hemoglobin 33.5 pg (27.0-33.0); Mean Corpuscular Volume 103.7 fL (80-98); Mean Platelet Volume 10.4 fL (9.4-12.3); Platelet Count 265 X10*3/uL (160-400); Red Blood Count 2.42 X10*6/uL (4.20-5.50); White Blood Count 4.9 X10*3/uL (4.8-10.8)
[2020-08-28 07:22] LABS: Anion Gap 14 (12-20); Blood Urea Nitrogen 8 mg/dL (9-16); Calcium 7.8 mg/dL (8.4-10.2); Carbon Dioxide 19 mmol/L (22-29); Chloride 113 mmol/L (96-108); Creatinine Clr Calc Pharmacy 53.5; Estimated Glomerular Filt Rate > 60; Glucose Fasting 73 mg/dL (60-99); Potassium 3.5 mmol/L (3.3-5.1); Sodium 142 mmol/L (135-145)
[2020-08-28] MEDS: Albuterol/Iprat 2.5/0.5MG 3 ML AMPUL.NEB INHALE (07:46)
[2020-08-28] MEDS: Acetylcysteine 10 % 400 MG/4 ML VIAL INHALE ×2 (07:47→20:13)
[2020-08-28] MEDS: Lidocaine 4 % Patch ADH..PATCH 1 PATCH TRANSDERMA (08:43)
[2020-08-28] MEDS: 0.9 % Sodium Chloride Flush 3 ML SYRINGE IVFLUSH ×3 (08:44→20:29)
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
[2020-08-28] MEDS: Sodium Ferric Gluconat/Sucrose 125 MG in 0.9 % Sodium Chloride 100 ML 100 MG IV (11:39)
[2020-08-28] MEDS: Acetaminophen 325 MG TABLET 650 MG PO (15:19)
[2020-08-28] MEDS: cefTRIAXone sodium 1 GM in 0.9 % Sodium Chloride 50 ML IV (15:19)
[2020-08-28] MEDS: diphenhydrAMINE HCL 50 MG/ML VIAL 12.5 MG IVPUSH ×2 (15:22→20:38)
[2020-08-28] MEDS: Enoxaparin Sodium 40 MG/0.4 ML SYRINGE SUBCUT (20:25)
[2020-08-28] MEDS: HYDROmorphone HCl 0.5 MG/0.5 ML SYRINGE IVPUSH (21:07)
[2020-08-29] VITALS (9 sets, daily range): BP systolic 133–173; BP diastolic 59–74; PULSE 60–114; RESP 18–20; TEMP 36.1–37.4; O2SAT 91–99
[2020-08-29] MEDS: Levothyroxine Sodium 100 MCG/5 ML VIAL 37.5 MCG IVPUSH (05:58)
[2020-08-29] MEDS: Albuterol/Iprat 2.5/0.5MG 3 ML AMPUL.NEB INHALE ×2 (08:27→20:35)
[2020-08-29] MEDS: Acetylcysteine 10 % 400 MG/4 ML VIAL INHALE ×2 (08:27→20:23)
[2020-08-29] MEDS: Lidocaine 4 % Patch ADH..PATCH 1 PATCH TRANSDERMA (08:44)
[2020-08-29] MEDS: HYDROmorphone HCl 0.5 MG/0.5 ML SYRINGE IVPUSH ×2 (08:44→22:22)
[2020-08-29] MEDS: 0.9 % Sodium Chloride Flush 3 ML SYRINGE IVFLUSH ×3 (08:44→20:45)
[2020-08-29] MEDS: Sodium Ferric Gluconat/Sucrose 125 MG in 0.9 % Sodium Chloride 100 ML 100 MG IV (09:13)
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
[2020-08-29] MEDS: cefTRIAXone sodium 1 GM in 0.9 % Sodium Chloride 50 ML IV (13:40)
[2020-08-29] MEDS: Enoxaparin Sodium 40 MG/0.4 ML SYRINGE SUBCUT (20:44)
[2020-08-29] MEDS: diphenhydrAMINE HCL 50 MG/ML VIAL 12.5 MG IVPUSH (20:45)
[2020-08-30 03:36] VITALS: BP 173/57; PULSE 76; RESP 18; TEMP 36.8; O2SAT 95
[2020-08-30] MEDS: Levothyroxine Sodium 100 MCG/5 ML VIAL 37.5 MCG IVPUSH (06:23)
[2020-08-30 07:12] LABS: Hematocrit 26.8 % (37-47); Hemoglobin 8.7 g/dl (12.0-16.0); Mean Corpuscular HGB Conc 32.5 g/dl (31.0-35.0); Mean Corpuscular Hemoglobin 33.3 pg (27.0-33.0); Mean Corpuscular Volume 102.7 fL (80-98); Mean Platelet Volume 10.3 fL (9.4-12.3); Platelet Count 347 X10*3/uL (160-400); Red Blood Count 2.61 X10*6/uL (4.20-5.50); Red Cell Distribution Width 13.1 % (11.0-16.0); White Blood Count 5.8 X10*3/uL (4.8-10.8)
[2020-08-30 07:28] VITALS: BP 189/77; PULSE 65; RESP 20; TEMP 36.7; O2SAT 98
[2020-08-30] MEDS: Acetylcysteine 10 % 400 MG/4 ML VIAL INHALE (07:42)
[2020-08-30 07:44] VITALS: PULSE 66; O2SAT 95
[2020-08-30 08:05] LABS: Anion Gap 18 (12-20); Blood Urea Nitrogen 12 mg/dL (9-16); Calcium 7.5 mg/dL (8.4-10.2); Carbon Dioxide 14 mmol/L (22-29); Chloride 114 mmol/L (96-108); Creatinine Clr Calc Pharmacy 54.9; Estimated Glomerular Filt Rate > 60; Glucose Fasting 28 mg/dL (60-99); Magnesium 1.5 mg/dL (1.6-2.6); Potassium 3.5 mmol/L (3.3-5.1); Sodium 142 mmol/L (135-145)
[2020-08-30] MEDS: 0.9 % Sodium Chloride Flush 3 ML SYRINGE IVFLUSH (08:17)
[2020-08-30 08:41] LABS: Glucose, Whole Blood 128 mg/dL (60-115)
[2020-08-30] MEDS: Lidocaine 4 % Patch ADH..PATCH 1 PATCH TRANSDERMA (09:05)
--- NOTE | 2020-08-30 09:44 | P.DS_ITS ---
DS: Providers Provider Date of Service: 08/30/20 Date of admission: 08/24/20 19:18 Primary care physician: Unknown Physician Consults: 08/24/20 19:17 Consult to Cardiology Routine Consulting Provider: Tho Monteiro Reason for consultation: elevated troponins Consult to Gastroenterology Routine Consulting Provider: Chang Abarca Reason for consultation: dysphagia; hx G tube; ?G tube reconsideration; Melena Consult to Nephrology Routine Consulting Provider: Barrett Hanna Reason for consultation: Hypercalcemia; hypokalemia; ABRAHAM Consult to Pulmonology Routine Consulting Provider: Giana Portillo Reason for consultation: bronchoscopy; mucus plug; Rt middle lobe collapse 08/25/20 10:02 Consult to Pulmonology Routine Consulting Provider: Yasir Last Reason for consultation: atalectasis rt middle lobe Has provider been notified: Yes DS: Diagnosis Discharge Diagnosis (1) Atelectasis: Status: Acute Problem details: ON CHEST X-RAY AND CT SCAN SHE SEEMS TO HAVE PARTIAL ATELECTASIS OF THE RIGHT MIDDLE LOBE. CLINICALLY IT IS CLEARING, OXYGENATION IS MUCH IMPROVED. I DO NOT THINK SHE WOULD NEED BRONCHOSCOPY AT THIS TIME. (2) Mucus plugging of bronchi: Status: Acute Problem details: PATIENT ADMITTED WITH THE PARTIAL ATELECTASIS OF THE RIGHT MIDDLE LOBE, SECONDARY TO MUCUS PLUGGING. CLINICALLY IT SEEMS TO HAVE RESOLVED AND SHE IS DEFINITELY IMPROVED. TX CONTINUE DUONEB UPDRAFTS. CONTINUE MUCOMYST IN UPDRAFTS BUT WILL REDUCE THE FREQUENCY TO B.I.D., MAY BE DC DID TOMORROW. (3) Dysphagia: Status: Acute Problem details: PATIENT IS STATUS POST RIGHT MANDIBULAR RESECTION FOR CARCINOMA IN THE PAST. SHE DOES HAVE DIFFICULTY IN SWALLOWING PUTTING HER AT RISK OF PULMONARY ASPIRATIONS. PAST HISTORY OF G-TUBE BUT HAS BEEN REMOVED. PATIENT MAY HAVE HAD MICRO ASPIRATIONS CAUSING EXTRA MUCUS SECRETIONS AND PLUGGING OF THE BRONCHIAL TO. PATIENT IS DECLINING TO HAVE G-TUBE PLACED BACK. (4) ABRAHAM (acute kidney injury): Status: Acute (5) Hypercalcemia: Status: Acute (6) Pneumonia: Status: Acute (7) Metabolic encephalopathy: Status: Acute (8) Iron deficiency anemia: Status: Acute (9) Duodenal ulcer: Status: Acute (10) Bacteremia: Status: Acute DS: Medications Discharge Medications Home Medications: Home Medications Medication Instructions Recorded Confirmed levothyroxine 1 tab PO DAILY 08/24/20 08/24/20 Previous Rx's Medication Instructions Recorded cefuroxime axetil 500 mg PO BID #6 tab 08/30/20 omeprazole 40 mg PO DAILY #30 cap 08/30/20 DS: Summary Hospital Course Hospital Course: Patient was admitted for metabolic encephalopathy which was multifactorial due to hypercalcemia, dehydration, pneumonia due to group B strep complicated by bacteremia. She was given IV fluids and ceftriaxone and her mental status returned to baseline. Due to patient's surgical and radiation history there was concern that pneumonia was aspiration related. She was seen by speech therapy recommended barium swallow which showed persistent aspiration and alternate means of nutrition were recommended. Patient was offered gastrostomy tube, however, she has refused and wishes to continue her current diet. She is aware it comes with the risk of aspiration. Patient was noted to have iron deficiency anemia with iron saturation of 10%. She underwent EGD which showed duodenal ulcer and esophagitis. She was started on PPI and given IV iron. Patient also had some acute kidney injury which improved with hydration, she had hypokalemia which was replaced and hypercalcemia which improved with hydration. On admission patient also noted to have a mild elevation of troponin of 74.2. She was evaluated by Cardiology who felt that this was secondary to her pneumonia a nd dehydration. She had an echocardiogram which was unremarkable. On day of discharge patient had an asymptomatic event of hypoglycemia, likely due to not eating in the hospital. After being given D50 glucoses remained normal. Patient will be discharged to her mother's house. Time Spent with Patient Time attestation: Total time spent providing and/or coordinating discharge services: Discharge coordination time: Greater than 30 minutes Quality: Stroke Does the patient have a stroke diagnosis?: No Physical Exam Vital Signs: Vital Signs: Last Vital Signs Temp 98.1 F 08/30/20 07:28 Pulse 66 08/30/20 07:44 Resp 20 08/30/20 07:28 BP 189/77 H 08/30/20 07:28 Pulse Ox 98 08/30/20 07:28 Body Mass Index 23.6 General: AO X 3, no acute distress HEENT - s/p right mandible resection Resp: diminshed CVS: S1,S2,RRR GI: soft, non tender, non distended Neuro: motor grossly intact Psych: appropriate affect DS: Data Data Completed and Pending Pending studies at discharge: Pending at discharge 08/26/20 15:49 Surgical [PTH] Routine Labs on day of discharge: Laboratory Results - last 24 hr 08/30/20 08/30/20 08/30/20 06:01 06:01 08:36 WBC 5.8 RBC 2.61 L Hgb 8.7 L Hct 26.8 L MCV 102.7 H MCH 33.3 H MCHC 32.5 RDW 13.1 Plt Count 347 D MPV 10.3 Absolute Nucleated RBC 0.000 Nucleated RBC % (auto) 0.0 Sodium 142 Potassium 3.5 Chloride 114 H Carbon Dioxide 14 L Anion Gap 18 BUN 12 Creatinine 0.76 Estim Creat Clear Calc 54.9 Estimated GFR > 60 POC Glucose 128 H Fasting Glucose 28 L* Calcium 7.5 L Magnesium 1.5 L Discharge Plan Discharge Patient Disposition: Home, Self-Care Discharge Diagnosis: pneumonia, dysphagia Referrals: Physician,Unknown [Primary Care Provider] - 1 Week Discharge Medications: New cefuroxime axetil 500 mg tablet 500 mg PO BID Qty: 6 RF: 0 omeprazole 40 mg capsule,delayed release(DR/EC) 40 mg PO DAILY Qty: 30 RF: 0 Continued levothyroxine 88 mcg tablet 1 tab PO DAILY RF: 0 Discharge Orders: Discharge Order (Routine); Ordered 08/30/20 Ordered By: Eliceo Lambert Diet: other Activity on Discharge: As tolerated Stand Alone Forms: Patient Portal Discharge page Care Plan Goals: treat pneumonia, avoid aspiratoin Health Concerns: aspiration Plan of Treatment: gtube was recommended, if you change your mind follow up with GI, take aspiration precautions to prevent as much as possible, but this is not expected to be effective, continue ppi, ceftin Assessment: see aove
--- NOTE | 2020-08-30 10:14 | W.MHC.F2F ---
Service Date Service Date: 08/30/20 Encounter Date of encounter: 08/30/20 Reasons for Services Reason for chcf: medication management Homebound: Leaving the home is medically contraindicated at this time without the asist of a device and/or another person due th the listed conditions above and below. Certification: Based on the above findings, I certify that this patient is confined to the home and needs intermittent chcf care, physical therapy and/or speech therapy, or continues to need occupational therapy. The patient is under my care, and I have initiated the establishment of the plan of care. The patient will be followed by a physician who will periodically review the plan of care.
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
== END 2020-08-30 12:10 | disposition home health service (06) | DRG 139 ==
LOC: HO.ED 14:03 → HO.IMC 19:43
PROVIDERS: Internal Medicine Gastroenterology; Nurse Practitioner Family; Admitting Provider Hospitalist; Emergency Provider Emergency Medicine; PCP Internal Medicine; Visit Provider Internal Medicine
PROC: 0DJ08ZZ Inspection of Upper Intestinal Tract, Via Natural or Artificial Opening Endoscopic (ICD-10-PCS; CPT 43235; principal; 2020-08-26 17:10)
DX: J15.3 Pneumonia due to streptococcus, group B (principal); N17.9 Acute kidney failure, unspecified; G93.41 Metabolic encephalopathy; K26.4 Chronic or unspecified duodenal ulcer with hemorrhage; K29.71 Gastritis, unspecified, with bleeding; R78.81 Bacteremia; T17.890A Other foreign object in other parts of respiratory tract causing asphyxiation, initial encounter; F17.210 Nicotine dependence, cigarettes, uncomplicated; N18.30 Chronic kidney disease, stage 3 unspecified; E86.0 Dehydration; E83.42 Hypomagnesemia; T76.11XA Adult physical abuse, suspected, initial encounter; E83.52 Hypercalcemia; E03.9 Hypothyroidism, unspecified; K92.1 Melena; R79.89 Other specified abnormal findings of blood chemistry; J98.11 Atelectasis; D63.1 Anemia in chronic kidney disease; K20.91 Esophagitis, unspecified with bleeding; K22.2 Esophageal obstruction; B95.1 Streptococcus, group B, as the cause of diseases classified elsewhere; E87.6 Hypokalemia; X58.XXXA Exposure to other specified factors, initial encounter; Z85.830 Personal history of malignant neoplasm of bone; Z20.822 Contact with and (suspected) exposure to COVID-19; Z71.6 Tobacco abuse counseling; Z79.890 Hormone replacement therapy; Z79.899 Other long term (current) drug therapy
CPT/HCPCS: 36415; 70450; 71250; 72125; 74176; 74230; 80048; 80076; 80179; 80307; 81001; 82077; 82272; 82306; 82607; 82728; 82947; 83540; 83605; 83735; 83880; 83970; 84484; 85025; 85027; 85610; 86850; 86900; 86901; 87040; 87077; 87147; 87186; 87205; 87635; 88305; 88342; 92610; 92611; 93005; 93306; 94640; 94644; 99285; C1726; J0696; J1170; J1200; J1650; J2543; J2916; J3010; J3370; J3475

== ENCOUNTER 2021-05-09 09:24 | Emergency (ER) | payer MEDICAID, SELFPAY ==
--- NOTE | ~2021-05-09 | XR_ITS ---
EXAMINATION: XR CHEST CLINICAL INFORMATION: Weakness, chest pain, SOB and abdominal pain. COMPARISON: None TECHNIQUE: 2 views of the chest were obtained. FINDINGS: The lungs are well-expanded with patchy atelectatic changes or scarring in the lingula. Rest of lungs are clear. Heart size and pulmonary vascularity is normal. No gross bony abnormality seen. XR/XR chest 2V IMPRESSION: Patchy atelectasis or scarring in the lingula
--- NOTE | ~2021-05-09 | US_ITS ---
EXAMINATION: US ABDOMEN COMPLETE CLINICAL INFORMATION: Nausea, upper abdominal pain and diarrhea.. COMPARISON: None TECHNIQUE: Real-time imaging of the abdominal viscera. FINDINGS: PANCREAS: Normal. ABDOMINAL AORTA: The proximal, mid, and distal segments are normal in caliber. INFERIOR VENA CAVA: Visualized portions are normal. LIVER: Normal. The liver is normal in size. The liver contour is normal. Parenchymal echogenicity is slightly echogenic. No focal hepatic lesion. There is no intrahepatic biliary duct dilatation seen. GALLBLADDER: Gallbladder wall thickness is 0.25 cm. The gallbladder is physiologically distended without evidence of stones, sludge, polyps, wall thickening or pericholecystic fluid. COMMON BILE DUCT: Normal in caliber measuring 0.63 cm in diameter. RIGHT KIDNEY: Normal. No hydronephrosis. No renal calculi or focal parenchymal lesions. The kidney measures 9.9 cm in maximum dimension. LEFT KIDNEY: Normal. No hydronephrosis. No renal calculi or focal parenchymal lesions. The kidney measures 11.0 cm in maximum dimension. SPLEEN: Normal. The spleen measures 5.4 cm in maximum dimension. FREE FLUID: None. US/US abdomen complete IMPRESSION: Mildly echogenic liver without focal lesion. Rest of the abdominal ultrasound is unremarkable.
--- NOTE | ~2021-05-09 | CT_ITS ---
EXAMINATION: CT ABDOMEN AND PELVIS WITH CONTRAST CLINICAL INFORMATION: Nausea and abdominal pain. COMPARISON: Ultrasound abdomen 05/09/2021. TECHNIQUE: Multidetector volumetric images were obtained from the superior aspect of the liver through the pubic symphysis following administration 85 mL of Omnipaque 350 intravenous contrast. Sagittal and coronal reformatted images were obtained on the technologist's workstation. Oral contrast: No This CT examination was performed using dose optimization techniques as appropriate, variously including the following: *Automated exposure control *Adjustment of mA and/or kV according to patient size (this includes techniques or standardized protocols for targeted exams where dose is matched to indication/reason for exam; i.e. extremities or head) *Use of iterative reconstruction technique DLP: 335 mGy-cm FINDINGS: LUNG BASES: There is anterobasal left lower lobe scarring. The heart size is normal. LIVER, GALLBLADDER, AND BILIARY TREE: The liver is normal in size, contour and density. No focal lesion or intrahepatic ductal dilatation seen. The gallbladder is unremarkable with no evidence of radiopaque gallstones, gallbladder wall thickening, or obvious pericholecystic inflammatory changes. PANCREAS: Unremarkable. SPLEEN: Unremarkable. ADRENAL GLANDS: Unremarkable. KIDNEYS AND URETERS: The kidneys are normal in size, shape, and attenuation. No hydronephrosis, hydroureter, or calculi seen. There is mild bilateral perinephric fat stranding. BLADDER: Unremarkable. GASTROINTESTINAL TRACT: There is moderate mural thickening involving the pylorus and proximal duodenum suspicious for gastritis/duodenitis. There is mild fat stranding around the pylorus and the duodenum but there is no free air seen to suspect perforated ulcer. The small bowel loops are normal caliber. Scattered stool and gas is seen in the colon without distention. No free fluid. No obstruction, free air. ABDOMINAL WALL: No significant hernia is appreciated. LYMPH NODES: Normal. VASCULAR: There are atherosclerotic changes of abdominal aorta without aneurysmal dilatation. PELVIC VISCERA: The uterus is anteverted and appears unremarkable. There is no free air or free fluid seen. OSSEOUS STRUCTURES: There are degenerative disc changes with vacuum disc phenomena L4-L5 and L5-S1 disc levels. There is no lytic or sclerotic process seen. CT/CT abdomen pelvis w con IMPRESSION: Mild mural thickening involving the pylorus and the proximal stomach suggestive of gastritis or duodenitis. There is no free air or fluid collection to suspect any ulceration or abscess. However, there is mild perigastric and periduodenal fat stranding. Fleischner guidelines were followed.
--- NOTE | 2021-05-09 09:40 | ECG_ITS ---
Test Reason : ABDOMINAL PAIN Blood Pressure : / mmHG Vent. Rate : 064 BPM Atrial Rate : 064 BPM P-R Int : 170 ms QRS Dur : 080 ms QT Int : 420 ms P-R-T Axes : 084 074 063 degrees QTc Int : 433 ms Normal sinus rhythm Septal infarct , age undetermined Abnormal ECG When compared with ECG of 24-AUG-2020 14:01, No significant change was found Referred By: Belle Castro Electronically Signed By:ZENIA QUEEN
[2021-05-09 09:53] VITALS: BP 152/70; BP 160/50; PULSE 78; PULSE 94; RESP 18; TEMP 36.8; O2SAT 100; O2SAT 98; BMI 22.8
--- NOTE | 2021-05-09 10:24 | ED.ABDPAIN ---
HPI - Abdominal Pain General Chief Complaint: General Medical Stated Complaint: ABD PAINW/DIARRHEA X'S 2 DAYS Time Seen by Provider: 05/09/21 09:32 Source: patient and EMS Mode of arrival: EMS Limitations: no limitations History of Present Illness HPI narrative: 66-year-old female with a past medical history of mandibular cancer status post chemo/radiation/resection, history of dysphagia- remote G2 which has been removed currently on p.o. diet and eats baby she rear 0, yogurt and Ensure and has been having dysphagia issues along with a history of chronic back pain, hypothyroidism, anemia, tobacco dependent who is presenting to the ED via EMS with complaints of 2 days of nausea with associated upper abdominal pain and diarrhea. She also reports chest pain and shortness of breath along with a cough. She denies any fevers, chills, dizziness, headache, neck pain/stiffness, trouble swallowing or breathing, sore throat, loss of taste or smell, dyspnea on exertion, orthopnea, palpitations, radiation of the abdominal pain, vomiting, black or bloody stools, constipation, recent travel or sick contacts, lower extremity edema or calf tenderness, recent falls or trauma, recent antibiotic usage or hospitalization, recent surgery, or any other symptoms complaints or concerns at this time. She reports that she is vaccinated to COVID and boosted. MD elicited complaint: abdominal pain Pertinent past history: other (See above) Onset (ago): day(s) (2) Pain Consistency: constant Location: epigastric Severity: moderate Quality: cramping and aching Radiation: none Migration to: no migration Exacerbating factors: nothing Relieving factors: nothing Associated symptoms: nausea and diarrhea Related Data Home Medications Medication Instructions Recorded Confirmed fluticasone propionate 50 1 - 2 spray INTRANASAL DAILY PRN 05/09/21 mcg/actuation nasal spray,suspension levothyroxine 75 mcg tablet 1 tab DAILY 05/09/21 Previous Rx's Medication Instructions Recorded omeprazole 40 mg capsule,delayed 40 mg PO DAILY #30 cap 08/30/20 release famotidine 20 mg tablet (Pepcid) 20 mg PO BID #14 tab 05/09/21 furosemide 20 mg tablet (Lasix) 20 mg PO QAM #30 tab 05/09/21 ondansetron 4 mg disintegrating 4 mg PO Q6-8H PRN #14 tab 05/09/21 tablet Allergies Allergy/AdvReac Type Severity Reaction Status Date / Time No Known Allergies Allergy Verified 08/24/20 13:45 Review of Systems Review of Systems Constitutional : No Weight loss, No Fever, No Chills, No Night Sweats, No Fatigue, No Malaise ENT/Mouth : No Hearing loss, No Ear Pain, No Nasal Congestion, No Sinus Pain, No Hoarseness, No sore throat, No Rhinorrhea, No Swallowing Difficulty Eyes: No Eye Pain, No Swelling, No Redness, No Foreign Body, No Discharge, No Vision Changes Cardiovascular : + Chest Pain, + SOB, No Dyspnea on Exertion, No Orthopnea, No Edema, No Palpitations Respiratory : + Cough, No Sputum, No Wheezing, No Smoke Exposure, No Dyspnea Gastrointestinal : + Nausea, No Vomiting, + Diarrhea, No Constipation, + abdominal Pain, No Hematochezia, No Melena Genitourinary : no irregular bleeding, No Dysuria, No Urinary Frequency, No Hematuria, No Urinary Incontinence, No Urgency, No Flank Pain, No Urinary Flow Changes, No Hesitancy Musculoskeletal : No joint pain, No Myalgias, No Joint Swelling Skin : No Skin Lesions, No rash Neuro : No Weakness, No Numbness, No Paresthesias, No Loss of Consciousness, No Dizziness, No Headache Psych : No Anxiety/Panic, No Depression, No SI/HI/AH/VH, No Social Issues, Heme/Lymph: No Bruising, No Bleeding,No Lymphadenopathy Endocrine : No Polyuria, No Polydipsia, No Temperature Intolerance Yes all other systems are reviewed and are negative [facility] Past Medical History Attestation statement: The following information was validated with the patient. Medical History Atelectasis Atelectasis Cancer of jaw Dysphagia Hypothyroidism Mucus plugging of bronchi Social History Social History Household Members: Children and Other Household Members Other:: states she lives with her mother, but ed reporting states living with daugh Housing: House Do you presently have visiting nurse or other home services: No (used to have services but states they stopped 3 years ago) Alcohol intake: current Alcohol intake frequency: 3 or more drinks per day Alcohol type: beer Patient Tobacco Use Status: Current someday Tobacco user Tobacco use type: Cigarette Cigarette Packs Per Day: 1 Cigarettes Per Day: 20.0 Years Smoked: 35 Advance Directives: Yes Advance Directives Information Provided: No Advance Directives on File: No service: No Current occupational status: disabled Physical Exam ED Vital Signs: Vital Signs - 24 hr 05/09/21 09:53 05/09/21 12:47 05/09/21 15:20 Temperature 98.2 F 98.1 F 98 F Pulse Rate 78 67 70 Respiratory Rate 18 12 12 Blood Pressure 160/50 H 164/44 H 169/59 H Pulse Oximetry 98 98 98 BMI result Body Mass Index 22.8 vital signs have been reviewed as normal and appeared to be correct. Blood pressure 160/50. Heart rate normal. Respiration rate normal. Temperature normal. Oxygen saturation normal. Appearance: Alert. Oriented X3. No acute distress. Head: Normal external exam. Normocephalic. Atraumatic. Eyes: PERRLA. EOMI. Conjunctiva and sclera normal. Eyelids normal. ENT: EAC normal. TM's Normal. Pharynx normal. Uvula midline. Moist mucous membranes. No lesions/ulcerations or masses noted on the tongue. Abnormal voice due to mandible reconstruction although patient reports this is her normal voice. No trismus noted. No drooling noted. Neck: Normal inspection. Neck supple. FROM. No adenopathy. Thyroid Normal. No tracheal deviation noted. No crepitus is noted. No meningeal signs. No neck mass noted. No signs of trauma noted. CVS: Normal heart rate and rhythm. Heart sound normal. Pulses normal throughout. No murmurs/rales/gallops. Respiratory: No respiratory distress. Painless inspiration. Breath sounds normal. No wheezes/rales/rhonchi noted. Chest nontender. No crepitus is noted. No signs of trauma noted. No accessory muscle usage noted or decreased air movement noted. No signs of trauma. Abdomen: Soft and mild tenderness palpation to the upper abdomen/epigastric area pain Bowel sounds normal in all 4 quadrants. No distention noted. No organomegaly noted. No visible injury noted. Back: No CVA tenderness. Full range of motion noted. Nontender. No signs of trauma. Patient neuro intact bilaterally and distally on all 4 extremities. Patient's reflexes intact bilaterally and distally on all 4 extremities. No rashes/lesion/induration/fluctuance or signs of infection noted. Skin: Skin warm and dry. Normal skin color. Normal skin turgor. No rashes/lesions/lacerations noted. Extremities: No lower extremity edema. No calf tenderness is noted. Extremities exhibit normal range of motion and nontender. Neuro: Oriented X 3. No motor deficit. No sensory deficit. Reflexes normal. Normal steady gait. No focal neuro deficits noted. CN's II-XII intact bilaterally? Vascular: + radial pulses/+ 2 distal pedal pulses/+2 dorsalis pedis b/l. Normal cap refill. No cyanosis noted to upper extremity nails and lower extremity toes nails. Course Course Course Narrative: 9:35am - 66-year-old female with a past medical history of mandibular cancer status post chemo/radiation/resection, history of dysphagia- remote G2 which has been removed currently on p.o. diet and eats baby she rear 0, yogurt and Ensure and has been having dysphagia issues along with a history of chronic back pain, hypothyroidism, anemia, tobacco dependent who is presenting to the ED via EMS with complaints of 2 days of nausea with associated upper abdominal pain and diarrhea. She also reports chest pain and shortness of breath along with a cough. She reports that she is vaccinated to COVID and boosted. Plan: Labs, POC now, EKG, chest x-ray and abdominal ultrasound. Provided 4 mg of Zofran and 60 mg of IM Toradol and re-evaluate. Reevaluation(s) Reevaluation #1: - labs reviewed patient with white blood cell count of 4000. Mild anemia which is improved when compared to prior. Sodium 134. Carbon dioxide 35. Chloride 91. AST 36. BNP 448. Troponin 8.9. Total protein 6.3. Albumin 3.2. Otherwise all other labs are within normal limits. - patient is positive for COVID I let her know this. - abdominal ultrasound revealed mild echogenic liver without focal lesion otherwise unremarkable. - chest x-ray revealed patchy atelectasis or scarring in the lingula. - EKG is normal sinus rhythm no acute processes were noted. - therefore at this time patient continues to have abdominal pain will place an IV and obtain a CT scan abdomen pelvis with IV contrast. Still awaiting UA and repeat troponin will re-evaluate. Time: 12:28 Reevaluation #2: - CT scan abdomen pelvis revealed gastritis no other acute processes. - awaiting troponin. If troponin negative will DC back home with instructions to self isolate and to return if any new or worsening symptoms to follow up with primary care provider and to follow CDC guidelines. Will DC home with Zofran and H2 carey. Time: 16:13 Reevaluation #3: - repeat troponin 12.2 which is negative delta. Patient's BNP was 448 and does not appear that the patient is on Lasix therefore will give her a dose of 20 mg to take daily. Therefore at this time will DC home with Zofran and Pepcid and instructions to self isolate and follow CDC guidelines and to return if any new or worsening symptoms. Patient understands agrees with this plan. Time: 16:29 MDM - Abdominal Pain Medical Records Attestation: I reviewed the patient's medical records. Lab Data Attestation: I reviewed the patient's lab results. Result diagrams: 05/09/21 11:38 05/09/21 11:38 Labs: Lab Results 05/09/21 05/09/21 05/09/21 Range/Units 11:38 11:38 11:38 WBC 4.6 L (4.8-10.8) X10*3/uL RBC 3.95 L (4.20-5.50) X10*6/uL Hgb 11.2 L (12.0-16.0) g/dl Hct 34.7 L (37.0-47.0) % MCV 87.8 (80.0-98.0) fL MCH 28.4 (27.0-33.0) pg MCHC 32.3 (31.0-35.0) g/dl RDW 21.6 H (11.0-16.0) % Plt Count 326 (160-400) X10*3/uL MPV 8.5 L (9.4-12.3) fL Immature Gran % (Auto) 0.4 (0.0-0.4) % Neut % (Auto) 66.3 (45-73) % Lymph % (Auto) 19.1 L (20-40) % Warrick % (Auto) 13.6 H (2-11) % Eos % (Auto) 0.2 (0-4) % Baso % (Auto) 0.4 (0-2) % Lymph # (Auto) 0.9 L (1.2-4.9) X10*3/uL Warrick # (Auto) 0.6 (0.1-1.2) X10*3/uL Eos # (Auto) 0.0 (0.0-0.4) X10*3/uL Baso # (Auto) 0.0 (0.0-0.2) X10*3/uL Abs Immat Gran (auto) 0.02 (0.00-0.03) X10*3/uL Absolute Neuts (auto) 3.0 (2.0-8.3) x10*3/uL Absolute Nucleated RBC 0.000 (0.0-0.012) X10*3/uL Nucleated RBC % (auto) 0.0 (0.0-0.2) /100WBC PT 12.2 (9.9-13.0) SEC INR 1.1 (0.9-1.1) Sodium (135-145) mmol/L Potassium (3.3-5.1) mmol/L Chloride (96-108) mmol/L Carbon Dioxide (22-29) mmol/L Anion Gap (12-20) BUN (9-16) mg/dL Creatinine (0.5-1.4) mg/dL Estim Creat Clear Calc Estimated GFR Random Glucose (60-115) mg/dL Calcium (8.4-10.2) mg/dL Magnesium (1.6-2.6) mg/dL Total Bilirubin (0.0-1.0) mg/dL AST (5-31) U/L ALT (0-31) U/L Alkaline Phosphatase (39-117) U/L Troponin I High Sens (<3.5-17.0) ng/L B-Natriuretic Peptide (<100) pg/mL Total Protein (6.5-8.0) g/dL Albumin (3.5-5.0) g/dL Lipase (8-78) U/L Urine Color Urine Appearance Urine pH (5.0-8.0) Ur Specific Zullinger (1.005-1.025) Urine Protein (NEG-TRACE) MG/DL Urine Glucose (UA) (NEG) MG/DL Urine Ketones (NEG) MG/DL Urine Blood (NEG) Urine Nitrite (NEG) Ur Leukocyte Esterase (NEG) COVID-19 (NICHOLE) Positive A (Negative) COVID-19 Clin Com See Note 05/09/21 05/09/21 05/09/21 Range/Units 11:38 11:38 11:47 WBC (4.8-10.8) X10*3/uL RBC (4.20-5.50) X10*6/uL Hgb (12.0-16.0) g/dl Hct (37.0-47.0) % MCV (80.0-98.0) fL MCH (27.0-33.0) pg MCHC (31.0-35.0) g/dl RDW (11.0-16.0) % Plt Count (160-400) X10*3/uL MPV (9.4-12.3) fL Immature Gran % (Auto) (0.0-0.4) % Neut % (Auto) (45-73) % Lymph % (Auto) (20-40) % Warrick % (Auto) (2-11) % Eos % (Auto) (0-4) % Baso % (Auto) (0-2) % Lymph # (Auto) (1.2-4.9) X10*3/uL Warrick # (Auto) (0.1-1.2) X10*3/uL Eos # (Auto) (0.0-0.4) X10*3/uL Baso # (Auto) (0.0-0.2) X10*3/uL Abs Immat Gran (auto) (0.00-0.03) X10*3/uL Absolute Neuts (auto) (2.0-8.3) x10*3/uL Absolute Nucleated RBC (0.0-0.012) X10*3/uL Nucleated RBC % (auto) (0.0-0.2) /100WBC PT (9.9-13.0) SEC INR (0.9-1.1) Sodium 134 L (135-145) mmol/L Potassium 3.7 (3.3-5.1) mmol/L Chloride 91 L D (96-108) mmol/L Carbon Dioxide 35 H (22-29) mmol/L Anion Gap 12 (12-20) BUN 10 (9-16) mg/dL Creatinine 0.71 (0.5-1.4) mg/dL Estim Creat Clear Calc 55.2 Estimated GFR > 60 Random Glucose 78 (60-115) mg/dL Calcium 8.9 D (8.4-10.2) mg/dL Magnesium 1.7 (1.6-2.6) mg/dL Total Bilirubin 0.7 (0.0-1.0) mg/dL AST 36 H D (5-31) U/L ALT 19 (0-31) U/L Alkaline Phosphatase 91 D (39-117) U/L Troponin I High Sens 8.9 (<3.5-17.0) ng/L B-Natriuretic Peptide 448 H (<100) pg/mL Total Protein 6.3 L (6.5-8.0) g/dL Albumin 3.2 L (3.5-5.0) g/dL Lipase 15 (8-78) U/L Urine Color YELLOW Urine Appearance CLEAR Urine pH 8.5 H (5.0-8.0) Ur Specific Zullinger 1.010 (1.005-1.025) Urine Protein NEG (NEG-TRACE) MG/DL Urine Glucose (UA) NEG (NEG) MG/DL Urine Ketones NEG (NEG) MG/DL Urine Blood NEG (NEG) Urine Nitrite NEG (NEG) Ur Leukocyte Esterase NEG (NEG) COVID-19 ([facility]ICHOLE) (Negative) COVID-19 Clin Com 05/09/21 Range/Units 15:57 WBC (4.8-10.8) X10*3/uL RBC (4.20-5.50) X10*6/uL Hgb (12.0-16.0) g/dl Hct (37.0-47.0) % MCV (80.0-98.0) fL MCH (27.0-33.0) pg MCHC (31.0-35.0) g/dl RDW (11.0-16.0) % Plt Count (160-400) X10*3/uL MPV (9.4-12.3) fL Immature Gran % (Auto) (0.0-0.4) % Neut % (Auto) (45-73) % Lymph % (Auto) (20-40) % Warrick % (Auto) (2-11) % Eos % (Auto) (0-4) % Baso % (Auto) (0-2) % Lymph # (Auto) (1.2-4.9) X10*3/uL Warrick # (Auto) (0.1-1.2) X10*3/uL Eos # (Auto) (0.0-0.4) X10*3/uL Baso # (Auto) (0.0-0.2) X10*3/uL Abs Immat Gran (auto) (0.00-0.03) X10*3/uL Absolute Neuts (auto) (2.0-8.3) x10*3/uL Absolute Nucleated RBC (0.0-0.012) X10*3/uL Nucleated RBC % (auto) (0.0-0.2) /100WBC PT (9.9-13.0) SEC INR (0.9-1.1) Sodium (135-145) mmol/L Potassium (3.3-5.1) mmol/L Chloride (96-108) mmol/L Carbon Dioxide (22-29) mmol/L Anion Gap (12-20) BUN (9-16) mg/dL Creatinine (0.5-1.4) mg/dL Estim Creat Clear Calc Estimated GFR Random Glucose (60-115) mg/dL Calcium (8.4-10.2) mg/dL Magnesium (1.6-2.6) mg/dL Total Bilirubin (0.0-1.0) mg/dL AST (5-31) U/L ALT (0-31) U/L Alkaline Phosphatase (39-117) U/L Troponin I High Sens 12.7 (<3.5-17.0) ng/L B-Natriuretic Peptide (<100) pg/mL Total Protein (6.5-8.0) g/dL Albumin (3.5-5.0) g/dL Lipase (8-78) U/L Urine Color Urine Appearance Urine pH (5.0-8.0) Ur Specific Zullinger (1.005-1.025) Urine Protein (NEG-TRACE) MG/DL Urine Glucose (UA) (NEG) MG/DL Urine Ketones (NEG) MG/DL Urine Blood (NEG) Urine Nitrite (NEG) Ur Leukocyte Esterase (NEG) COVID-19 ([facility]ICHOLE) (Negative) COVID-19 Clin Com Imaging Data Chest x-ray: Attestation: I personally reviewed and interpreted this imaging study as follows: Radiologist's impression: FINDINGS: The lungs are well-expanded with patchy atelectatic changes or scarring in the lingula. Rest of lungs are clear. Heart size and pulmonary vascularity is normal. No gross bony abnormality seen. XR/XR chest 2V IMPRESSION: Patchy atelectasis or scarring in the lingula Abdominal ultrasound: Attestation: I personally reviewed and interpreted this imaging study as follows: Radiologist's impression: FINDINGS: PANCREAS: Normal. ABDOMINAL AORTA: The proximal, mid, and distal segments are normal in caliber. INFERIOR VENA CAVA: Visualized portions are normal. LIVER: Normal. The liver is normal in size. The liver contour is normal. Parenchymal echogenicity is slightly echogenic. No focal hepatic lesion. There is no intrahepatic biliary duct dilatation seen. GALLBLADDER: Gallbladder wall thickness is 0.25 cm. The gallbladder is physiologically distended without evidence of stones, sludge, polyps, wall thickening or pericholecystic fluid. COMMON BILE DUCT: Normal in caliber measuring 0.63 cm in diameter. RIGHT KIDNEY: Normal. No hydronephrosis. No renal calculi or focal parenchymal lesions. The kidney measures 9.9 cm in maximum dimension. LEFT KIDNEY: Normal. No hydronephrosis. No renal calculi or focal parenchymal lesions. The kidney measures 11.0 cm in maximum dimension. SPLEEN: Normal. The spleen measures 5.4 cm in maximum dimension. FREE FLUID: None. US/US abdomen complete IMPRESSION: Mildly echogenic liver without focal lesion. ? Rest of the abdominal ultrasound is unremarkable. CT scan abdomen pelvis with IV contrast: Attestation: I personally reviewed and interpreted this imaging study as follows: Radiologist's impression: FINDINGS: LUNG BASES: There is anterobasal left lower lobe scarring. The heart size is normal.? LIVER, GALLBLADDER, AND BILIARY TREE: The liver is normal in size, contour and density. No focal lesion or intrahepatic ductal dilatation seen. The gallbladder is unremarkable with no evidence of radiopaque gallstones, gallbladder wall thickening, or obvious pericholecystic inflammatory changes.? PANCREAS: Unremarkable.? SPLEEN: Unremarkable.? ADRENAL GLANDS: Unremarkable.? KIDNEYS AND URETERS: The kidneys are normal in size, shape, and attenuation. No hydronephrosis, hydroureter, or calculi seen. There is mild bilateral perinephric fat stranding. ? BLADDER: Unremarkable.? GASTROINTESTINAL TRACT: There is moderate mural thickening involving the pylorus and proximal duodenum suspicious for gastritis/duodenitis. There is mild fat stranding around the pylorus and the duodenum but there is no free air seen to suspect perforated ulcer. The small bowel loops are normal caliber. Scattered stool and gas is seen in the colon without distention. No free fluid. No obstruction, free air. ABDOMINAL WALL: No significant hernia is appreciated.? LYMPH NODES: Normal. VASCULAR: There are atherosclerotic changes of abdominal aorta without aneurysmal dilatation. PELVIC VISCERA: The uterus is anteverted and appears unremarkable. There is no free air or free fluid seen.? OSSEOUS STRUCTURES: There are degenerative disc changes with vacuum disc phenomena L4-L5 and L5-S1 disc levels. There is no lytic or sclerotic process seen.? CT/CT abdomen pelvis w con IMPRESSION: Mild mural thickening involving the pylorus and the proximal stomach suggestive of gastritis or duodenitis. There is no free air or fluid collection to suspect any ulceration or abscess. However, there is mild perigastric and periduodenal fat stranding. ? Fleischner guidelines were followed. ECG Data Attestation: I personally reviewed and interpreted this ECG as follows: ECG interpretation date: 05/09/21 ECG interpretation time: 11:15 Interpretation: Normal sinus rhythm at a ventricular rate of 64 with a normal ND interval normal QRS duration normal QT/QTC interval. No acute ischemic changes are noted. Similar when compared to prior EKG 08/24/2020. Critical Care Time Critical Care Time Critical Care Time: Yes Total Critical Care Time: 60 Attestation: I personally attest to this time spent taking care of the patient Discharge Plan Discharge Clinical Impression: COVID-19, Nausea, Abdominal pain, Diarrhea, CHF (congestive heart failure), Gastritis Patient Disposition: Home, Self-Care Instructions: Heart Failure (DC), Gastritis (ED), COVID-19 (Coronavirus Disease 2019) (ED) Prescriptions: New ondansetron 4 mg tablet,disintegrating 4 mg PO Q6-8H PRN (Reason: nausea and vomiting) Qty: 14 0RF famotidine [Pepcid] 20 mg tablet 20 mg PO BID Qty: 14 0RF furosemide [Lasix] 20 mg tablet 20 mg PO QAM Qty: 30 0RF No Action omeprazole 40 mg capsule,delayed release(DR/EC) 40 mg PO DAILY Qty: 30 0RF levothyroxine 75 mcg tablet 1 tab DAILY 0RF fluticasone propionate 50 mcg/actuation spray,suspension 1 - 2 spray intranasal DAILY PRN (Reason: Congestion) 0RF Referrals: Kerrie Burnham MD [Primary Care Provider] - 2 days Print Language: Romanian
[2021-05-09] MEDS: Ondansetron ODT 4 MG TAB.RAPDIS TRANSLINGU (11:08)
[2021-05-09] MEDS: Ketorolac Tromethamine 60 MG/2 ML VIAL IM (11:08)
[2021-05-09 11:42] LABS: MANUAL DIFF FLAG NO
[2021-05-09 11:44] LABS: Basophils Percent Auto 0.4 % (0-2); Eosinophils Percent Auto 0.2 % (0-4); Hematocrit 34.7 % (37.0-47.0); Hemoglobin 11.2 g/dl (12.0-16.0); Imm Gran Abs Auto 0.02 X10*3/uL (0.00-0.03); Imm Gran Pct Auto 0.4 % (0.0-0.4); Lymphocytes Absolute Auto 0.9 X10*3/uL (1.2-4.9); Lymphocytes Percent Auto 19.1 % (20-40); Mean Corpuscular HGB Conc 32.3 g/dl (31.0-35.0); Mean Corpuscular Hemoglobin 28.4 pg (27.0-33.0); Mean Corpuscular Volume 87.8 fL (80.0-98.0); Mean Platelet Volume 8.5 fL (9.4-12.3); Monocytes Absolute Auto 0.6 X10*3/uL (0.1-1.2); Monocytes Percent Auto 13.6 % (2-11); Neutrophils Percent Auto 66.3 % (45-73); Platelet Count 326 X10*3/uL (160-400); Red Blood Count 3.95 X10*6/uL (4.20-5.50); Red Cell Distribution Width 21.6 % (11.0-16.0); White Blood Count 4.6 X10*3/uL (4.8-10.8)
[2021-05-09 11:53] LABS: INTERNATIONAL NORM RATIO 1.1 (0.9-1.1); Prothrombin Time 12.2 SEC (9.9-13.0)
[2021-05-09 11:54] LABS: IDNOW Serial# 55D5AD1C
[2021-05-09 11:55] LABS: COVID-19 Test Positive (Negative)
[2021-05-09 11:58] LABS: Appearance Urine CLEAR; Color Urine YELLOW; Glucose Urine UA NEG (NEG); Leukocyte Esterase Urine NEG (NEG); Nitrite Urine NEG (NEG); PH 8.5 (5.0-8.0); Urine Blood NEG (NEG); Urine Ketones NEG (NEG); Urine Protein NEG (NEG-TRACE)
[2021-05-09 12:03] LABS: Alanine Aminotransferase 19 U/L (0-31); Albumin Level 3.2 g/dL (3.5-5.0); Alkaline Phosphatase 91 U/L (39-117); Anion Gap 12 (12-20); Aspartate Amino Transferase 36 U/L (5-31); Bilirubin Total 0.7 mg/dL (0.0-1.0); Blood Urea Nitrogen 10 mg/dL (9-16); Calcium 8.9 mg/dL (8.4-10.2); Carbon Dioxide 35 mmol/L (22-29); Chloride 91 mmol/L (96-108); Creatinine Clr Calc Pharmacy 55.2; Estimated Glomerular Filt Rate > 60; Glucose Random 78 mg/dL (60-115); Lipase 15 U/L (8-78); Magnesium 1.7 mg/dL (1.6-2.6); Potassium 3.7 mmol/L (3.3-5.1); Sodium 134 mmol/L (135-145); Total Protein 6.3 g/dL (6.5-8.0)
[2021-05-09 12:05] LABS: B Type Natriuretic Peptide 448 pg/mL (<100); Troponin-I High Sensitivity 8.9 ng/L (<3.5-17.0)
[2021-05-09 12:47] VITALS: BP 164/44; PULSE 67; RESP 12; TEMP 36.7; O2SAT 98
[2021-05-09] MEDS: iohexoL 350 MG/ML 100 ML INFUS..BTL IV (14:04)
[2021-05-09 15:20] VITALS: BP 169/59; PULSE 70; RESP 12; TEMP 36.6; O2SAT 98
[2021-05-09 16:23] LABS: Troponin-I High Sensitivity 12.7 ng/L (<3.5-17.0)
[2021-05-09] MEDS: Dicyclomine HCl 10 MG CAPSULE PO (16:34)
[2021-05-09] MEDS: PHENobarb/Hyoscy/Atropine/Scop 10 ML ELIXIR PO (16:34)
[2021-05-09] MEDS: Magnesium Hydrox/Alum Hydrox 30 ML ORAL.SUSP PO (16:34)
[2021-05-09] MEDS: Lidocaine HCl Viscous 2 % 15 ML SOLUTION MUCOUS MEM (16:35)
[2021-05-09] MEDS: Famotidine 20 MG TABLET PO (16:51)
== END 2021-05-09 16:53 | disposition home or self-care (01) ==
PROVIDERS: Physician Assistant Medical; Emergency Provider Emergency Medicine; PCP Internal Medicine
DX: U07.1 COVID-19 (principal); K29.70 Gastritis, unspecified, without bleeding; R19.7 Diarrhea, unspecified; I50.9 Heart failure, unspecified; R06.02 Shortness of breath; R10.9 Unspecified abdominal pain; Z79.899 Other long term (current) drug therapy
CPT/HCPCS: 36415; 71046; 74177; 76700; 80053; 81003; 83690; 83735; 83880; 84484; 85025; 85610; 87635; 93005; 96372; 99284; 99291; J1885; Q9967